=== PATIENT | male | born 1950 | race Caucasian/White ===

== ENCOUNTER 2018-07-13 11:27 | Emergency (ER) | payer OTHER ==
[~2018-07-13] VITALS: Ht 200.7 cm; Wt 106.0 kg
[~2018-07-13 11:27] MED LIST: CLB200 PO
[2018-07-13 11:31] VITALS: Ht 200.7 cm; Wt 106.0 kg
[2018-07-13] MEDS ORDERED: SODIUM CHLORIDE 0.9% 1000ML 1,000 ML IV ONE (11:44)
[2018-07-13] MEDS ORDERED: ACET-1693 PO (12:14)
[2018-07-13] MEDS ORDERED: ASPCH81X PO (12:14)
[2018-07-13] MEDS ORDERED: [UNRECOGNIZED DRUG - CODE] PO (12:14)
[2018-07-13] MEDS ORDERED: LISI-461 PO (12:14)
[2018-07-13] MEDS ORDERED: SILV1CRE99 TOP (12:14)
[2018-07-13 12:26] LABS: BASO % 0.6 %; BASO ABS # 0.02 K/uL (0-0.2); HEMATOCRIT 47.3 % (42-52); HEMOGLOBIN 15.8 g/dL (14.0-18.0); LYMPH % 13.5 %; LYMPH ABS # 0.46 K/uL (1.2-3.4); MEAN CELL VOLUME 94.4 fL (80-100); MEAN CORPUSCULAR HEMOGLOBIN 31.5 pg (25-34); MEAN CORPUSCULAR HGB CONC 33.4 g/dl (32-36); MEAN PLATELET VOLUME 10.2 fL (7.4-10.4); MONO % 6.5 %; MONO ABS # 0.22 K/uL (0.11-0.59); NEUT % 79.4 %; NEUT ABS # 2.71 K/uL (1.4-6.5); PLATELET COUNT 109 K/uL (130-400); RED CELL DISTRIBUTION WIDTH CV 13.2 % (11.5-14.5); RED CELL DISTRIBUTION WIDTH SD 45.2 fL (36.4-46.3); WHITE BLOOD COUNT 3.41 K/uL (4.8-10.8)
--- NOTE | 2018-07-13 12:29 | DIAGNOSTIC IMAGING REPORT ---
R TOE(S) MIN 2 VIEWS HISTORY: 68 years-old Male right first toe pain, fever acute pain of the right great toe COMPARISON: None available TECHNIQUE: 3 views of the right great toe FINDINGS: Mild degenerative changes of the interphalangeal joints and imaged metatarsophalangeal joints. There is mild soft tissue swelling centered about the first MTP joint and forefoot. No acute fracture, dislocation or erosive changes. Marginal spurring is seen about the midfoot as well, notably at the first tarsometatarsal joint. IMPRESSION: 1. Soft tissue swelling without acute fracture or dislocation. 2. Mild osteoarthritis. The above report was generated using voice recognition software. It may contain grammatical, syntax or spelling errors. Electronically signed by: Tyrone Arizmendi M.D. 07/13/2018 12:27 PM Dictated Date/Time: 07/13/2018 12:24 PM
--- NOTE | 2018-07-13 12:32 | DIAGNOSTIC IMAGING REPORT ---
CHEST ONE VIEW PORTABLE CLINICAL HISTORY: Sepsis. COMPARISON STUDY: Chest radiograph March 31, 2018. FINDINGS: Lung volumes are normal. There is no pneumothorax or pleural effusion. Mild cardiomegaly is noted without evidence for pulmonary edema. Apparent 2.9 cm right infrahilar opacity along the right heart border is noted. IMPRESSION: 1. Apparent 2.9 cm right infrahilar opacity along the right heart border. This may simply represent normal vasculature or atelectasis. However, a small focus of consolidation or pulmonary nodule could appear similar. Follow-up PA and lateral chest radiographs are recommended. 2. Mild cardiomegaly without evidence for pulmonary edema. Electronically signed by: Nicolas Saini M.D. 07/13/2018 12:30 PM Dictated Date/Time: 07/13/2018 12:28 PM
[2018-07-13 12:37] LABS: INR 1.1 (0.9-1.1); PTT PATIENT 27.5 SECONDS (21.0-31.0)
[2018-07-13 12:43] VITALS: O2SAT 97
[2018-07-13 12:43] LABS: ALBUMIN 3.5 gm/dl (3.4-5.0); CALCIUM 8.5 mg/dl (8.5-10.1); CREATININE 1.41 mg/dl (0.60-1.40); POTASSIUM 3.7 mmol/L (3.5-5.1); TOTAL PROTEIN 7.8 gm/dl (6.4-8.2)
[2018-07-13 13:09] VITALS: TEMP 38.4
[2018-07-13] MEDS ORDERED: ACETAMINOPHEN 500 MG TAB PO STA (13:20)
[2018-07-13] MEDS ORDERED: CEFTRIAXONE SOD INJ 1 GM ADDVIAL IV STA (13:20)
[2018-07-13] MEDS ORDERED: DOXY100C PO (14:10)
[2018-07-13 14:31] VITALS: BP 139/83; PULSE 83; O2SAT 94
--- NOTE | 2018-07-13 16:33 | EMERGENCY ROOM VISIT NOTE ---
History Report prepared by Riccardo: Romulo Agarwal Under the Supervision of: Dr. Bill Batres M.D. First contact with patient: 11:38 Chief Complaint: FEVER Stated Complaint: WEAK,TIRED,FEVER History of Present Illness The patient is a 68 year old male who presents to the Emergency Room with complaints of fevers beginning yesterday morning. The patient reports that yesterday morning, he began experiencing fatigue and chills. He states he then took 2 Tylenol. The patient's states that she measured the patient's temperature to be 103 after the Tylenol. The patient reports that he took Tylenol again at 03:00 this morning, and states that his most recent temperature was 101. He denies abdominal pain, sore throat, coughing, urinary symptoms, flank pain, diarrhea, or tick bites. He denies any sick contacts. He states that he has an upcoming surgery with Dr. Beard for gout in his right toe, noting that he had an appointment for his toe 2 weeks ago. The patient reports a history of sepsis when he had gout in his hand. He notes a history of Lyme disease. The patient's states that he was given prednisone for his gout but has not been taking it. Source of History: patient Onset: yesterday morning Position: other (global) Symptom Intensity: highest 103 Quality: other (fever) Associated Symptoms: + chills, + fatigue, No sorethroat, No cough, No abdominal pain, No diarrhea, No urinary symptoms Review of Systems See HPI for pertinent positives & negatives. A total of 10 systems reviewed and were otherwise negative. Past Medical & Surgical Medical Problems: (1) Fever (2) Hip pain (3) Lyme disease (4) Sepsis Family History Atrial fibrillation Social History Smoking Status: Never Smoker Marital Status: Housing Status: lives with significant other Occupation Status: retired Current/Historical Medications Scheduled Aspirin (Aspirin Chewable), 81 MG PO DAILY Doxycycline Hyclate (Vibramycin), 100 MG PO BID Silver Sulfadiazine (Silver Sulfadiazine), TOP DAILY Scheduled PRN Acetaminophen Tab (Tylenol), 650 MG PO Q4 PRN for Pain Sildenafil Citrate (Sildenafil Citrate), 50-100 MG PO DAILY PRN for ERECTILE DISFUNCTION Miscellaneous Medications Lisinopril (Zestril), 10 MG PO Allergies Coded Allergies: No Known Allergies (Unverified , 07/13/18) Physical Exam Vital Signs Date Time Temp Pulse Resp B/P (MAP) Pulse Ox O2 Delivery O2 Flow Rate FiO2 07/13/18 14:31 83 16 139/83 94 07/13/18 13:09 38.4 79 16 143/83 97 Room Air 07/13/18 12:43 97 Room Air 07/13/18 11:31 36.8 90 18 135/75 94 Room Air Physical Exam GENERAL: Patient is in no acute distress. HEENT: No acute trauma, normocephalic atraumatic, mucous membranes moist, no nasal congestion, no scleral icterus. NECK: No stridor, no adenopathy, no meningismus, trachea is midline. LUNGS: Clear to auscultation bilaterally, no wheeze, no rhonchi, breath sounds equal. HEART: Without murmurs gallops or rubs, regular rate and rhythm. ABDOMEN: Soft, nontender, bowel sounds positive, no hernias, no peritonitis. EXTREMITIES: No cyanosis or edema, full range of motion of all the joints without pain or difficulty, no signs for acute trauma. Right 1st toe has some mild erythema at the base of the nail . No drainage or warmth. NEUROLOGIC: Oriented x 3, no acute motor or sensory deficits, no focal weakness. SKIN: No rash, no jaundice, no diaphoresis. Medical Decision & Procedures ER Provider Diagnostic Interpretation: Radiology results as stated below per my review and radiologist interpretation: CHEST ONE VIEW PORTABLE CLINICAL HISTORY: Sepsis. COMPARISON STUDY: Chest radiograph March 31, 2018. FINDINGS: Lung volumes are normal. There is no pneumothorax or pleural effusion. Mild cardiomegaly is noted without evidence for pulmonary edema. Apparent 2.9 cm right infrahilar opacity along the right heart border is noted. IMPRESSION: 1. Apparent 2.9 cm right infrahilar opacity along the right heart border. This may simply represent normal vasculature or atelectasis. However, a small focus of consolidation or pulmonary nodule could appear similar. Follow-up PA and lateral chest radiographs are recommended. 2. Mild cardiomegaly without evidence for pulmonary edema. Electronically signed by: Nicolas Saini M.D. 07/13/2018 12:30 PM Dictated Date/Time: 07/13/2018 12:28 PM R TOE(S) MIN 2 VIEWS HISTORY: 68 years-old Male right first toe pain, fever acute pain of the right great toe COMPARISON: None available TECHNIQUE: 3 views of the right great toe FINDINGS: Mild degenerative changes of the interphalangeal joints and imaged metatarsophalangeal joints. There is mild soft tissue swelling centered about the first MTP joint and forefoot. No acute fracture, dislocation or erosive changes. Marginal spurring is seen about the midfoot as well, notably at the first tarsometatarsal joint. IMPRESSION: 1. Soft tissue swelling without acute fracture or dislocation. 2. Mild osteoarthritis. The above report was generated using voice recognition software. It may contain grammatical, syntax or spelling errors. Electronically signed by: Tyrone Arizmendi M.D. 07/13/2018 12:27 PM Dictated Date/Time: 07/13/2018 12:24 PM Laboratory Results 07/13/18 12:05 Red Blood Count 5.01, Mean Corpuscular Volume 94.4, Mean Corpuscular Hemoglobin 31.5, Mean Corpuscular Hemoglobin Concent 33.4, Mean Platelet Volume 10.2, Neutrophils (%) (Auto) 79.4, Lymphocytes (%) (Auto) 13.5, Monocytes (%) (Auto) 6.5, Eosinophils (%) (Auto) 0.0, Basophils (%) (Auto) 0.6, Neutrophils # (Auto) 2.71, Lymphocytes # (Auto) 0.46, Monocytes # (Auto) 0.22, Eosinophils # (Auto) 0.00, Basophils # (Auto) 0.02 07/13/18 12:05 Test 07/13/18 12:05 07/13/18 12:20 07/13/18 12:25 White Blood Count 3.41 K/uL (4.8-10.8) Red Blood Count 5.01 M/uL (4.7-6.1) Hemoglobin 15.8 g/dL (14.0-18.0) Hematocrit 47.3 % (42-52) Mean Corpuscular Volume 94.4 fL (80-100) Mean Corpuscular Hemoglobin 31.5 pg (25-34) Mean Corpuscular Hemoglobin Concent 33.4 g/dl (32-36) Platelet Count 109 K/uL (130-400) Mean Platelet Volume 10.2 fL (7.4-10.4) Neutrophils (%) (Auto) 79.4 % Lymphocytes (%) (Auto) 13.5 % Monocytes (%) (Auto) 6.5 % Eosinophils (%) (Auto) 0.0 % Basophils (%) (Auto) 0.6 % Neutrophils # (Auto) 2.71 K/uL (1.4-6.5) Lymphocytes # (Auto) 0.46 K/uL (1.2-3.4) Monocytes # (Auto) 0.22 K/uL (0.11-0.59) Eosinophils # (Auto) 0.00 K/uL (0-0.5) Basophils # (Auto) 0.02 K/uL (0-0.2) RDW Standard Deviation 45.2 fL (36.4-46.3) RDW Coefficient of Variation 13.2 % (11.5-14.5) Immature Granulocyte % (Auto) 0.0 % Immature Granulocyte # (Auto) 0.00 K/uL (0.00-0.02) Prothrombin Time 11.4 SECONDS (9.0-12.0) Prothromb Time International Ratio 1.1 (0.9-1.1) Activated Partial Thromboplast Time 27.5 SECONDS (21.0-31.0) Partial Thromboplastin Ratio 1.1 Anion Gap 9.0 mmol/L (3-11) Est Creatinine Clear Calc Drug Dose 67.4 ml/min Estimated GFR () 59.3 Estimated GFR (Non- 51.2 BUN/Creatinine Ratio 11.8 (10-20) Calcium Level 8.5 mg/dl (8.5-10.1) Total Bilirubin 0.6 mg/dl (0.2-1) Aspartate Amino Transf (AST/SGOT) 24 U/L (15-37) Alanine Aminotransferase (ALT/SGPT) 32 U/L (12-78) Alkaline Phosphatase 68 U/L (45-117) Total Protein 7.8 gm/dl (6.4-8.2) Albumin 3.5 gm/dl (3.4-5.0) Globulin 4.3 gm/dl (2.5-4.0) Albumin/Globulin Ratio 0.8 (0.9-2) Lyme Disease IgG Antibody NEG (NEG) Lyme Disease IgM Antibody NEG (NEG) Bedside Lactic Acid Venous 1.62 mmol/L (0.90-1.70) Urine Color YELLOW Urine Appearance CLEAR (CLEAR) Urine pH 6.0 (4.5-7.5) Urine Specific [place] 1.019 (1.000-1.030) Urine Protein NEG (NEG) Urine Glucose (UA) NEG (NEG) Urine Ketones NEG (NEG) Urine Occult Blood 1+ (NEG) Urine Nitrite NEG (NEG) Urine Bilirubin NEG (NEG) Urine Urobilinogen NEG (NEG) Urine Leukocyte Esterase NEG (NEG) Urine WBC (Auto) 0 /hpf (0-5) Urine RBC (Auto) 5-10 /hpf (0-4) Urine Hyaline Casts (Auto) 0 /lpf (0-5) Urine Epithelial Cells (Auto) 0-5 /lpf (0-5) Urine Bacteria (Auto) NEG (NEG) Laboratory results reviewed by me. Medications Administered Medications (Trade) Dose Ordered Sig/[place] Route Start Time Stop Time Status Last Admin Dose Admin Sodium Chloride 1,000 ml @ 999 mls/hr Q1H1M ONCE IV 07/13/18 11:44 07/13/18 12:44 DC 07/13/18 11:44 999 MLS/HR Ceftriaxone Sodium (Rocephin Inj) 1 gm NOW STAT IV 07/13/18 13:20 07/13/18 13:22 DC 07/13/18 13:28 1 GM Acetaminophen (Tylenol Tab) 1,000 mg NOW STAT PO 07/13/18 13:20 07/13/18 13:22 DC 07/13/18 13:27 1,000 MG ED Course 1138: The patient was evaluated in room C1B. A complete history and physical exam was performed. 1144: Ordered Sodium Chloride 1000 ml @ 999 mls/hr IV 1320: Ordered Tylenol 1000 mg PO, Rocephin 1 gm IV 1353: Reevaluated the patient. Discussed results and discharge instructions: He verbalized understanding and agreement. The patient is ready for discharge. Medical Decision Differential diagnosis: UTI, bacteriemia, electrolyte imbalance, sepsis, osteomyelitis, endocarditis, lyme disease, pneumonia, viral illness There is no white count elevation, in fact, the white count is slightly low. Platelet count slightly low. No anemia. No significant electrolyte abnormality , kidney failure or hepatitis. Urinalysis does not show infection. Chest film shows an area along the right heart border which could be possible infection versus tissue overlap versus a nodule, follow-up was suggested. Right first toe film showed osteoarthritis, no evidence for osteomyelitis. Blood cultures are pending. Lactic acid level was not elevated making sepsis less likely. Lyme disease testing was negative. Anaplasmosis testing is pending. On exam, the right toe did not show evidence for cellulitis. The patient did develop a fever during his stay in the ER, he was given IV saline, oral Tylenol. He received IV ceftriaxone. I am concerned about a tickborne illness as a possible cause for his fever. Anaplasmosis is possible. Certainly, early pneumonia is also possible. The patient is being discharged on doxycycline which should be good coverage for all possibilities. He was encouraged to return if worsening and to follow with his doctors office for follow-up testing. I did mention that this all could be viral, the patient and his significant other understand. Medication Reconcilliation Current Medication List: was personally reviewed by me Blood Pressure Screening Patient's blood pressure: Elevated blood pressure Blood pressure disposition: Elevated BP felt to be situational Impression Primary Impression: Fever Additional Impression: Abnormal chest x-ray Scribe Attestation The scribe's documentation has been prepared under my direction and personally reviewed by me in its entirety. I confirm that the note above accurately reflects all work, treatment, procedures, and medical decision making performed by me. Departure Information Dispostion Home / Self-Care Prescriptions Doxycycline Hyclate (VIBRAMYCIN) 100 Mg Cap 100 MG PO BID for 14 Days, #28 CAP Prov: Bill Batres M.D. 07/13/18 Referrals Jose Jimenez M.D. (PCP) Forms HOME CARE DOCUMENTATION FORM, IMPORTANT VISIT INFORMATION Patient Instructions My [facility] [employer] Additional Instructions doxycycline 2x per day for 2 weeks tylenol for fever fluids rest see je paige wednesday for a recheck return for worsening symptoms your je paige can follow up on the tick borne disease testing you will also need a repeat chest film as we discussed Problem Qualifiers
== END 2018-07-13 14:30 | disposition home or self-care (01) ==
LOC: C.EDB 11:30 → C.EDC 14:30
DX: R50.9 Fever, unspecified (principal); R91.8 Other nonspecific abnormal finding of lung field; M10.9 Gout, unspecified; Z79.82 Long term (current) use of aspirin

== ENCOUNTER 2019-05-04 11:39 | Inpatient (IN) ==
[2019-05-04] MEDS ORDERED: SODIUM CHLORIDE 0.9% 1000ML 2,000 ML IV ONE (12:42)
--- NOTE | 2019-05-04 13:05 | XRay Report ---
SINGLE VIEW CHEST CLINICAL HISTORY: Sepsis. FINDINGS: An AP, portable, upright chest radiograph is compared to study dated 07/13/2018. The examina tion is degraded by portable technique and patient rotation. The heart is enlarged and there is mild atherosclerotic calcification of the thoracic aorta. The pulmonary vasculature is noncongested. Ther e is mild chronic elevation of the left hemidiaphragm with associated atelectasis. The lungs and pleu ral spaces are otherwise clear. No pneumothorax is seen. The bony thorax is grossly intact. Degenerat claudette change is seen in the thoracic spine. IMPRESSION: Cardiac enlargement with no active disease in the chest. Electronically signed by: Bill Lisa M.D. 05/04/2019 1:03 PM
[2019-05-04 13:35] LABS: Hematocrit (blood only) 45.2 % (42-52); Hemoglobin 16.1 g/dL (14.0-18.0); Mean Corpuscular Hgb Conc 35.6 g/dL (32-36); Mean Corpuscular Volume 89.7 fL (80-100); RDW Coefficient of Variation 13.4 % (11.5-14.5); RDW Standard Deviation 44.6 fL (36.4-46.3); Red Blood Count 5.04 M/uL (4.7-6.1); White Blood Count 2.84 K/uL (4.8-10.8)
[2019-05-04 13:43] LABS: Albumin Level 3.1 gm/dl (3.4-5.0); BUN Creatinine Ratio 19.9 (10-20); Calcium 8.3 mg/dl (8.5-10.1); Creatinine Clr Calc Pharmacy 69.3 ml/min; Est GFR (African American) 61.4; Potassium 3.7 mmol/L (3.5-5.1)
[2019-05-04 13:45] LABS: INR 1.1 (0.9-1.1); Partial Thromboplastin Ratio 1.1; Partial Thromboplastin Time 29.9 Seconds (21.0-31.0); Prothrombin Time 11.5 Seconds (9.0-12.0)
[2019-05-04] MEDS ORDERED: DOXYCYCLINE HYCLATE 100 MG CAP PO STA (13:45)
[2019-05-04] MEDS ORDERED: SODIUM CHLORIDE 0.9% 1000ML 1,000 ML IV SCH (13:45)
[2019-05-04] MEDS ORDERED: cefTRIAXone SODIUM 2,000 MG in DEXTROSE 5% 50 ML IV STA (13:45)
[2019-05-04] MEDS ORDERED: ONDANSETRON INJ 2 MG/ML 2 ML VIAL IV STA (13:45)
[2019-05-04 13:48] LABS: Albumin Globulin Ratio 0.8 (0.9-2); Creatine Kinase MB 2.7 ng/ml (0.5-3.6); Globulin 4.1 gm/dl (2.5-4.0); Total Protein 7.2 gm/dl (6.4-8.2); Troponin I 0.028 ng/ml (0-0.045)
[2019-05-04 13:49] LABS: Mean Platelet Volume 11.6 fL (7.4-10.4); Platelet Count 47 K/uL (130-400)
[2019-05-04 13:50] LABS: Basophils # (auto) 0.01 K/uL (0-0.2); Basophils % (auto) 0.4 %; Lymphocytes # (auto) 0.34 K/uL (1.2-3.4); Monocytes # (auto) 0.16 K/uL (0.11-0.59); Monocytes % (auto) 5.6 %; Neutrophils # (auto) 2.33 K/uL (1.4-6.5); Platelet Estimate Decreased (Normal)
[2019-05-04 14:14] LABS: Lyme Ab IgG w/WB Rflx Negative (Negative); Lyme Ab IgM w/WB Rflx Negative (Negative)
--- NOTE | 2019-05-04 16:35 | Cardiology Consultation ---
Date of Consultation May 04, 2019 Assessment & Plan (1) New onset a-fib: The patient's blood pressure at 2 PM had been 134/90, most recent repeat reading included a systolic blood pressure in the 80s. We are in the process of repeating another blood pressure. His heart rate is reasonably well controlled in the 80 to 95 bpm range after receiving 3 L of IV fluids. The patient is ill-appearing. He denies personal history of arrhythmia. He does note that his father had a history of atrial fibrillation. Recommend supportive care for suspected underlying infection as noted below, IV fluids, I do not think there is enough room for rate control medications at this point. And I recommend avoiding anticoagulation givin platelet count of 47 at present. (2) Sepsis: (3) Leukopenia: (4) Thrombocytopenia: The patient is retired from the [employer]. He had past Lyme disease release 10 years ago. He notes no recent definite tick bites. As noted by the admitting team in the emergency department physician, patient has leukopenia, thrombus cytopenia, and mildly elevated AST. Anaplasmosis studies have been sent. And he has received Rocephin and doxycycline and these are to be continued. He does have an erythematous rash over his body at present. I spoke to Dr. Dupont, he believes this was present before the antibiotics were administered. As noted if repeated temperature was taken when I was examining the patient and he was afebrile. A bedside echocardiogram was ordered by the undersigned. I reviewed the first few images. There is no pericardial effusion. We will await completion of the entire study prior to commenting on the ejection fraction and other findings. History of Present Illness History of Present Illness Tolu Soto is a 68 year old male seen in cardiology consultation per the request of Dr Alston for the evaluation of atrial fibrillation. The patient denies any past cardiac history. He had an outpatient EKG within the [facility] system in December 2017 that revealed sinus bradycardia with frequent premature atrial complexes. He presented to the emergency department today with with the patient describes as approximately 1 week of progressive symptoms of feeling chills at home, and progressive weakness. His initial blood pressure was 110/79, his initial heart rate was 103. 2 temperature readings were taken thus far in the emergency room with most recent having been 98.4 F, and he was without objective elevated temperature on the first reading as well. Have revealed atrial fibrillation in the range of 85 to 100 bpm without any significant repolarization changes. Prior to my arrival, the patient had received 3 L of normal saline and a dose of IV ceftriaxone. The patient denies any subjective sensation that his heart rate is elevated or irregular. He does note recent dizziness and near syncope. Allergies Allergy/AdvReac Type Severity Reaction Status Date / Time No Known Allergies Allergy Unverified 05/04/19 13:53 Home Medications Home Medications Medication Instructions Recorded Confirmed Type acetaminophen 650 mg PO Q4H PRN 05/04/19 05/04/19 History allopurinol 100 mg PO QAM 05/04/19 05/04/19 History aspirin [Aspirin Childrens] 81 mg PO QAM 05/04/19 05/04/19 History lisinopril 10 mg PO DAILY 05/04/19 05/04/19 History metformin 500 mg PO BID 05/04/19 05/04/19 History Patient History Medical History Lyme disease (Resolved) Hip pain (Resolved) Fever (Resolved) Confusion (Acute) Septic arthritis of IP joint of finger (Acute) Sepsis Abnormal chest x-ray (Acute) Family History Other Family history non-contributory Social History marital status: Current Living Situation: Spouse Feels Safe at Home: Yes Smoking Status: Former smoker Review of Systems Review of Systems: All systems reviewed & are unremarkable except as noted in HPI & below Physical Exam Constitutional: + ill appearing and average body habitus Respiratory: normal respiratory effort, lungs clear to auscultation Cardiovascular: Rate/Rhythm: + tachycardic and + irregularly irregular Heart Sounds: no murmur Vessels: no JVD Extremities: no edema Gastrointestinal (Abdomen): normal bowel sounds, soft, nontender, no hepatosplenomegaly Skin: Erythematous, nonraised rash over the patient's trunk Neurologic: PERRL, EOMI, accommodation nl, no face palsy, no dysarthria moves all extremities; no focal motor deficits Results & Data Vital Signs (Past 12 Hours) Vital Signs Temp Pulse Resp BP Pulse Ox 05/04/19 14:00 95 H 22 134/90 100 05/04/19 13:40 99 H 21 137/73 100 05/04/19 13:36 97 H 20 100 05/04/19 13:30 103 H 19 119/80 100 05/04/19 13:10 98 H 15 104/74 100 05/04/19 13:01 110 H 20 96/71 L 100 05/04/19 13:00 106 H 18 100 05/04/19 12:50 100 H 4 L 93/71 L 100 05/04/19 12:40 107 H 17 107/67 100 05/04/19 12:31 106 H 29 H 98 05/04/19 12:30 103 H 19 106/69 100 05/04/19 12:20 98 H 19 100 05/04/19 12:16 87 13 97/70 L 100 05/04/19 12:10 100 H 24 89 L 05/04/19 12:04 37.0 C 93 H 20 100/71 96 05/04/19 12:02 111 H 18 87 L 05/04/19 12:00 90 24 97/68 L 86 L 05/04/19 11:57 103 H 26 H 110/79 92 Laboratory Results Cardiac Enzymes 05/04/19 Range/Units 13:10 AST 90 H (15-37) U/L CK-MB (CK-2) 2.7 (0.5-3.6) ng/ml Troponin I 0.028 (0-0.045) ng/ml Coagulation 05/04/19 Range/Units 13:23 PT 11.5 (9.0-12.0) Seconds APTT 29.9 (21.0-31.0) Seconds CBC 05/04/19 Range/Units 13:10 WBC 2.84 L (4.8-10.8) K/uL RBC 5.04 (4.7-6.1) M/uL Hgb 16.1 (14.0-18.0) g/dL Hct 45.2 (42-52) % Plt Count 47 L (130-400) K/uL Neut # (Auto) 2.33 (1.4-6.5) K/uL Lymph # (Auto) 0.34 L (1.2-3.4) K/uL [place] # (Auto) 0.16 (0.11-0.59) K/uL Eos # (Auto) 0.00 (0-0.5) K/uL Baso # (Auto) 0.01 (0-0.2) K/uL Comprehensive Metabolic Panel 05/04/19 Range/Units 13:10 Sodium 135 L (136-145) mmol/L Potassium 3.7 (3.5-5.1) mmol/L Chloride 104 (98-107) mmol/L Carbon Dioxide 25 (21-32) mmol/L BUN 27 H (7-18) mg/dl Creatinine 1.37 (0.6-1.4) mg/dl Glucose 149 H (70-99) mg/dl Calcium 8.3 L (8.5-10.1) mg/dl AST 90 H (15-37) U/L ALT 78 (12-78) U/L Alkaline Phosphatase 65 (45-117) U/L Total Protein 7.2 (6.4-8.2) gm/dl Albumin 3.1 L (3.4-5.0) gm/dl Intake and Output 05/04/19 05/04/19 05/04/19 06:59 14:59 22:59 Intake Total 100 / 3170 3070 / 3170 Balance 100 / 3170 3070 / 3170 Intake: IV 100 / 3170 3070 / 3170 Nss 1000ML 2,000 ml @ 999 mls/ 3000 / 3000 hr IV .Q2H1M ONE Rx#:[id number] Rocephin 2,000 mg In D5w 50 ml 70 / 70 @ 100 mls/hr IV NOW STA Rx#: [id number] Right Antecubital 100 / 100 Other: Weight 111 kg Patient Weight 05/05/19 06:59 Weight 111 kg Diagnostic Findings EKG as noted above
--- NOTE | 2019-05-04 16:35 | History & Physical Report ---
Date of Service May 04, 2019 History of Present Illness Chief Complaint: Fever, chills, Generalized weakness Primary Care Provider: Manoj Matson MD Patient is a 68-year-old male with history of diabetes, CKD III, gout, hypertension, dyslipidemia, smokeless tobacco use presents with history of fever, chills since 4 days duration. Patient reports having very poor appetite since Wednesday. He had 2 episodes of vomiting on Wednesday and Wednesday. He was evaluated at his PCPs office today and he complained of lightheadedness. He states having significant generalized weakness and has been lying in bed most of the day since Wednesday. Also reports dry cough since Wednesday. Patient was noted to be in A. fib RVR while in ED which improved with IV fluids. He was also noted to have low platelets, but denies any history of bleeding. He was also found to be hypotensive while in ED. Patient denies any recent travel, has not noticed any rash, tick bite history. States having history of Lyme's disease i n the past 10 years ago. Denies any history of chest pain, SOB, palpitations, pedal edema, hemoptysis, fall, headache, abdominal pain, blood in stools, diarrhea, dysuria, hematuria. Allergies Allergy/AdvReac Type Severity Reaction Status Date / Time No Known Allergies Allergy Unverified 05/04/19 13:53 Home Medications Home Medications Medication Instructions Recorded Confirmed Type acetaminophen 650 mg PO Q4H PRN 05/04/19 05/04/19 History allopurinol 100 mg PO QAM 05/04/19 05/04/19 History aspirin [Aspirin Childrens] 81 mg PO QAM 05/04/19 05/04/19 History atorvastatin 20 mg PO DAILY 05/04/19 05/04/19 History lisinopril 10 mg PO DAILY 05/04/19 05/04/19 History metformin 500 mg PO BID 05/04/19 05/04/19 History Past Med/Surg History Medical History Lyme disease (Resolved) Hip pain (Resolved) Fever (Resolved) Confusion (Acute) Septic arthritis of IP joint of finger (Acute) Sepsis Abnormal chest x-ray (Acute) CKD (chronic kidney disease), stage III Diabetes Dyslipidemia Gout HTN (hypertension), benign Intention tremor Surgical History No history of previous surgery Family History Other Family history non-contributory Social History Preferred Language: Arabic Communication Ability: Effective Family Services Coordinator Required: No Beliefs That Will Affect Care: None marital status: Current Living Situation: Spouse Other Information That Helps Us Care for You: No Feels Safe at Home: Yes Safety Concerns: Feels Safe At This Time Smoking Status: Former smoker Tobacco Type: smokeless tobacco Do You Dip or Chew Tobacco: Yes (1 can a day) Second Hand Exposure: No Tobacco Cessation Education Requested by Patient: No Hx Alcohol Use: Yes Hx Substance Use: No Review of Systems Review of Systems: All systems reviewed & are unremarkable except as noted in HPI & below Physical Exam Physical Exam: Physical Exam: Vitals signs as noted above General Appearance:Moderately built and nourished, no apparent distress Head: normocephalic, Atraumatic Eyes: normal inspection, EOMI Neck: supple, Trachea midline Respiratory/Chest: Decreased breath sounds, CTA Cardiovascular: Irregulary Irregular, No murmur Abdomen/GI:Soft, Non tender, Bowel sounds present Extremities/Musculoskelatal:normal inspection, no edema Neurologic/Psych:AAOX3, grossly no focal neurological deficits Skin: normal color, warm Results & Data Vital Signs (Past 12 Hours) Vital Signs Temp Pulse Resp BP Pulse Ox 05/04/19 14:00 95 H 22 134/90 100 05/04/19 13:40 99 H 21 137/73 100 05/04/19 13:36 97 H 20 100 05/04/19 13:30 103 H 19 119/80 100 05/04/19 13:10 98 H 15 104/74 100 05/04/19 13:01 110 H 20 96/71 L 100 05/04/19 13:00 106 H 18 100 05/04/19 12:50 100 H 4 L 93/71 L 100 05/04/19 12:40 107 H 17 107/67 100 05/04/19 12:31 106 H 29 H 98 05/04/19 12:30 103 H 19 106/69 100 05/04/19 12:20 98 H 19 100 05/04/19 12:16 87 13 97/70 L 100 05/04/19 12:10 100 H 24 89 L 05/04/19 12:04 37.0 C 93 H 20 100/71 96 05/04/19 12:02 111 H 18 87 L 05/04/19 12:00 90 24 97/68 L 86 L 05/04/19 11:57 103 H 26 H 110/79 92 Laboratory Results Short CBC 05/04/19 Range/Units 13:10 WBC 2.84 L (4.8-10.8) K/uL Hgb 16.1 (14.0-18.0) g/dL Hct 45.2 (42-52) % Plt Count 47 L (130-400) K/uL BMP 05/04/19 13:10 Sodium 135 L Potassium 3.7 Chloride 104 Carbon Dioxide 25 BUN 27 H Creatinine 1.37 Glucose 149 H Calcium 8.3 L Cardiac Enzymes 05/04/19 Range/Units 13:10 Total Creatine Kinase 377 H (39-308) U/L CK-MB (CK-2) 2.7 (0.5-3.6) ng/ml Troponin I 0.028 (0-0.045) ng/ml Liver Function 05/04/19 Range/Units 13:10 Total Bilirubin 1.0 (0.2-1) mg/dl AST 90 H (15-37) U/L ALT 78 (12-78) U/L Alkaline Phosphatase 65 (45-117) U/L Albumin 3.1 L (3.4-5.0) gm/dl Diagnostic Findings CXR: Cardiac enlargement with no active disease in the chest. Medications Administered Home Medications Medication Instructions Recorded Confirmed acetaminophen 650 mg PO Q4H PRN 05/04/19 05/04/19 allopurinol 100 mg PO QAM 05/04/19 05/04/19 aspirin [Aspirin Childrens] 81 mg PO QAM 05/04/19 05/04/19 lisinopril 10 mg PO DAILY 05/04/19 05/04/19 metformin 500 mg PO BID 05/04/19 05/04/19 ECG Additional Comments: EKG: Afib RVR, QTC: 422 Supervising Physician Co-Signing Physician Notes Possible Sepsis Lukopenia, Thrombocytopenia To R/O Anaplasmosis CXR:Cardiac enlargement with no active disease in the chest. UA: pending Peripheral Smear: No myelodysplasia, no neutrophilic inclusions Serological Work up for Anaplasmosis/Lyme ordered Blood Cx Empirically Start on Ceftriaxone, Doxycycline Hold lisinopril for now New Onset Atrial Fibrillation Currently has Hypotension Bedside echo--no pericardial effusion, No signs of reduced EF Appreciate cardiology input No anticoagulation for now due to thrombocytopenia Heart rate is relatively controlled after IV fluids AV blocking meds once BP is more stable DM II: Last A1C: 6.7 on 01/11/19 Update A1C Hold Metformin Utilize ISS while hospitalized CKD III Cr at baseline Monitor renal function Gout On Allopurinol Dyslipidemia Hold statin for now due to mild CK elevation smokeless tobacco use Counseled to quit DVT Px: SCDs Re; thrombocytopenia Disposition: Monitor in Tele
[2019-05-04 17:13] LABS: Appearance Urine Cloudy (Clear); Bacteria Urine Automated Negative (Negative); Bilirubin Urine Negative (Negative); Blood Urine 1+ (Negative); Color Urine Dark Yellow; Epithelial Cell Urine Auto >30 /lpf (0-5); Glucose Urine UA Negative (Negative); Ketones Urine Negative (Negative); Leukocyte Esterase Urine Negative (Negative); Nitrite Urine Negative (Negative); Protein Urine 2+ (Negative); RBC Urine Automated 0-4 /hpf (0-4); Specific Gravity Urine 1.027 (1.000-1.030); Urobilinogen Urine Negative (Negative); pH Urine 5.5 (4.5-7.5)
[2019-05-04] MEDS ORDERED: ACETAMINOPHEN 325 MG TAB PO PRN (17:39)
[2019-05-04] MEDS ORDERED: ONDANSETRON INJ 2 MG/ML 2 ML VIAL IV PRN (17:39)
[2019-05-04] MEDS ORDERED: GLUCOSE 40% GEL 15 GM TUBE PO PRN (17:39)
[2019-05-04] MEDS ORDERED: DEXTROSE 50% 50 ML SYRINGE IV PRN (17:39)
[2019-05-04] MEDS ORDERED: POLYETHYLENE (MIRALAX) 17 GM PACK PO PRN (17:39)
[2019-05-04] MEDS ORDERED: CARBOHYDRATES FOR HYPOGLYCEMIA PO PRN (17:39)
[2019-05-04] MEDS ORDERED: GLUCOSE 10 TABS/TUBE PO PRN (17:39)
[2019-05-04] MEDS ORDERED: GLUCAGON FOR INJ 1 MG VIAL SQ PRN (17:39)
[2019-05-04] MEDS: NSS + 20MEQ KCL 20 MEQ/1,000 ML BAG IV SCH (18:14)
[2019-05-04] MEDS ORDERED: CONSULT PHARMACY STA (18:56)
--- NOTE | 2019-05-04 19:00 | Communication Note ---
Date of Service: May 04, 2019 Summary of transthoracic echocardiogram report: Atrial fibrillation with mildly elevated ventricular rate in the range of 90 to 100 bpm was present during the echocardiogram study. LV Ejection Fraction = 60-65%. The right ventricle is normal in size and function. There is no pericardial effusion. There is a linear mobile echodensity noted in the midportion of the right atrium that appears to perhaps be adherent to the interatrial septum. The differential diagnosis includes a prominent Chiari network (normal anatomical variant) or thrombus. However given the patient's presentation with a sepsis-like syndrome and fever, vegetation is a likely consideration. -I called and discussed the echocardiogram findings with Dr. Alston. He is going to expand the antibiotic coverage to include staph aureus. I am going to make the patient n.p.o. after midnight for consideration of transesophageal echocardiogram tomorrow.
--- NOTE | 2019-05-04 19:01 | Emergency Department Note ---
Entered by Karoline Rodriguez acting as a scribe for History of Present Illness General Chief complaint: Illness Stated complaint: dizzy/vomit Time Seen by Provider: 05/04/19 12:16 Source: patient History of Present Illness Onset (ago): day(s) 3 Location: head, abdomen, upper extremity and lower extremity Pain Consistency: + other (episode) Quality: + other (illness) Associated symptoms: + fever/chills, + nausea/vomiting (vomiting), + syncope (ne ar) and + weakness The patient is a 68 year old male who presents to the ED with complaints of an episode of an illness starting 3 days ago. The patient states that he has been having fever, chills, vomiting, and weakness. He states that he went to his PCP today and while there had one of his episodes where he shakes from his chills so much. He states that he almost passed out so they called an ambulance to bring him here. Home Medications Home Medications Medication Instructions Recorded Confirmed Type acetaminophen 650 mg PO Q4H PRN 05/04/19 05/04/19 History allopurinol 100 mg PO QAM 05/04/19 05/04/19 History aspirin [Aspirin Childrens] 81 mg PO QAM 05/04/19 05/04/19 History atorvastatin 20 mg PO DAILY 05/04/19 05/04/19 History lisinopril 10 mg PO DAILY 05/04/19 05/04/19 History metformin 500 mg PO BID 05/04/19 05/04/19 History Allergies Allergy/AdvReac Type Severity Reaction Status Date / Time No Known Allergies Allergy Unverified 05/04/19 13:53 Past Med/Surg History Medical History Lyme disease (Resolved) Hip pain (Resolved) Fever (Resolved) Confusion (Acute) Septic arthritis of IP joint of finger (Acute) Sepsis Abnormal chest x-ray (Acute) CKD (chronic kidney disease), stage III Diabetes Dyslipidemia Gout HTN (hypertension), benign Intention tremor Surgical History No history of previous surgery Family History Other Family history non-contributory Social History Preferred Language: Azeri Communication Ability: Effective 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 and A total of 10 systems reviewed and were otherwise negative Physical Exam Vital Signs Vital Signs - 24 hr 05/04/19 11:57 05/04/19 12:00 05/04/19 12:02 Temperature Temperature Source Sepsis Recent Fever Within 48 Hours Sepsis New/Unexplained Change in Mental Status Sepsis Action Taken by Nursing Pulse Rate 103 H 90 111 H Pulse Rate from SpO2 Sensor 100 H 87 98 H Respiratory Rate 26 H 24 18 Respiratory Effort / Characteristics Respiratory Depth Respiratory Pattern Blood Pressure 110/79 97/68 L Blood Pressure Mean 89 77 Pulse Oximetry 92 86 L 87 L Oxygen Delivery Method Oxygen Flow Rate 05/04/19 12:04 05/04/19 12:10 05/04/19 12:16 Temperature 37.0 C Temperature Source Oral Sepsis Recent Fever Within 48 Hours Yes Sepsis New/Unexplained Change in Mental Status No Sepsis Action Taken by Nursing No Action Required Pulse Rate 93 H 100 H 87 Pulse Rate from SpO2 Sensor 96 H 85 Respiratory Rate 20 24 13 Respiratory Effort / Characteristics Non-Labored Spontaneous Respiratory Depth Normal Respiratory Pattern Regular Blood Pressure 100/71 97/70 L Blood Pressure Mean 80 79 Pulse Oximetry 96 89 L 100 Oxygen Delivery Method Room Air Oxygen Flow Rate 05/04/19 12:20 05/04/19 12:30 05/04/19 12:31 Temperature Temperature Source Sepsis Recent Fever Within 48 Hours Sepsis New/Unexplained Change in Mental Status Sepsis Action Taken by Nursing Pulse Rate 98 H 103 H 106 H Pulse Rate from SpO2 Sensor 98 H 91 H 86 Respiratory Rate 19 19 29 H Respiratory Effort / Characteristics Respiratory Depth Respiratory Pattern Blood Pressure 106/69 Blood Pressure Mean 81 Pulse Oximetry 100 100 98 Oxygen Delivery Method Oxygen Flow Rate 05/04/19 12:40 05/04/19 12:50 05/04/19 13:00 Temperature Temperature Source Sepsis Recent Fever Within 48 Hours Sepsis New/Unexplained Change in Mental Status Sepsis Action Taken by Nursing Pulse Rate 107 H 100 H 106 H Pulse Rate from SpO2 Sensor 88 85 88 Respiratory Rate 17 4 L 18 Respiratory Effort / Characteristics Respiratory Depth Respiratory Pattern Blood Pressure 107/67 93/71 L Blood Pressure Mean 80 78 Pulse Oximetry 100 100 100 Oxygen Delivery Method Oxygen Flow Rate 05/04/19 13:01 05/04/19 13:10 05/04/19 13:30 Temperature Temperature Source Sepsis Recent Fever Within 48 Hours Sepsis New/Unexplained Change in Mental Status Sepsis Action Taken by Nursing Pulse Rate 110 H 98 H 103 H Pulse Rate from SpO2 Sensor 83 94 H 98 H Respiratory Rate 20 15 19 Respiratory Effort / Characteristics Respiratory Depth Respiratory Pattern Blood Pressure 96/71 L 104/74 119/80 Blood Pressure Mean 79 84 93 Pulse Oximetry 100 100 100 Oxygen Delivery Method Oxygen Flow Rate 05/04/19 13:36 05/04/19 13:40 05/04/19 14:00 Temperature Temperature Source Sepsis Recent Fever Within 48 Hours Sepsis New/Unexplained Change in Mental Status Sepsis Action Taken by Nursing Pulse Rate 97 H 99 H 95 H Pulse Rate from SpO2 Sensor 86 82 Respiratory Rate 20 21 22 Respiratory Effort / Characteristics Respiratory Depth Respiratory Pattern Blood Pressure 137/73 134/90 Blood Pressure Mean 94 104 Pulse Oximetry 100 100 100 Oxygen Delivery Method Nasal Cannula Oxygen Flow Rate 2 05/04/19 14:10 05/04/19 14:20 05/04/19 14:30 Temperature Temperature Source Sepsis Recent Fever Within 48 Hours Sepsis New/Unexplained Change in Mental Status Sepsis Action Taken by Nursing Pulse Rate 99 H 97 H 92 H Pulse Rate from SpO2 Sensor 86 92 H 89 Respiratory Rate 24 26 H 20 Respiratory Effort / Characteristics Respiratory Depth Respiratory Pattern Blood Pressure 118/86 Blood Pressure Mean 96 Pulse Oximetry 100 100 100 Oxygen Delivery Method Oxygen Flow Rate 05/04/19 14:40 05/04/19 14:50 05/04/19 15:00 Temperature Temperature Source Sepsis Recent Fever Within 48 Hours Sepsis New/Unexplained Change in Mental Status Sepsis Action Taken by Nursing Pulse Rate 94 H 93 H 97 H Pulse Rate from SpO2 Sensor 90 92 H 91 H Respiratory Rate 27 H 28 H 29 H Respiratory Effort / Characteristics Respiratory Depth Respiratory Pattern Blood Pressure 125/77 Blood Pressure Mean 93 Pulse Oximetry 100 100 100 Oxygen Delivery Method Oxygen Flow Rate 05/04/19 15:10 05/04/19 15:20 05/04/19 15:30 Temperature Temperature Source Sepsis Recent Fever Within 48 Hours Sepsis New/Unexplained Change in Mental Status Sepsis Action Taken by Nursing Pulse Rate 88 94 H 88 Pulse Rate from SpO2 Sensor 87 92 H 92 H Respiratory Rate 33 H 19 11 L Respiratory Effort / Characteristics Respiratory Depth Respiratory Pattern Blood Pressure 119/69 Blood Pressure Mean 85 Pulse Oximetry 100 99 100 Oxygen Delivery Method Oxygen Flow Rate 05/04/19 15:40 05/04/19 15:50 05/04/19 16:00 Temperature Temperature Source Sepsis Recent Fever Within 48 Hours Sepsis New/Unexplained Change in Mental Status Sepsis Action Taken by Nursing Pulse Rate 92 H 116 H 99 H Pulse Rate from SpO2 Sensor 86 83 83 Respiratory Rate 18 16 15 Respiratory Effort / Characteristics Respiratory Depth Respiratory Pattern Blood Pressure Blood Pressure Mean Pulse Oximetry 100 98 99 Oxygen Delivery Method Oxygen Flow Rate 05/04/19 16:01 05/04/19 16:10 05/04/19 16:20 Temperature Temperature Source Sepsis Recent Fever Within 48 Hours Sepsis New/Unexplained Change in Mental Status Sepsis Action Taken by Nursing Pulse Rate 94 H 86 80 Pulse Rate from SpO2 Sensor 87 84 77 Respiratory Rate 9 L 16 23 Respiratory Effort / Characteristics Respiratory Depth Respiratory Pattern Blood Pressure 84/63 L Blood Pressure Mean 70 Pulse Oximetry 100 94 97 Oxygen Delivery Method Oxygen Flow Rate GENERAL: Awake, alert, well-appearing, in no acute distress HENT: Normocephalic, atraumatic. Oropharynx unremarkable. EYES: Normal conjunctiva. Sclera non-icteric. NECK: Supple. No nuchal rigidity. FROM. No JVD. RESPIRATORY: Clear to auscultation. CARDIAC: Regular rate, normal rhythm. Extremities warm and well perfused. Pulses equal. ABDOMEN: Soft, non-distended. No tenderness to palpation. No rebound or guarding. No masses. RECTAL: Deferred. MUSCULOSKELETAL: Chest examination reveals no tenderness. The back is symmetrical on inspection without obvious abnormality. There is no CVA tenderness to palpation. No joint edema. LOWER EXTREMITIES: Calves are equal size bilaterally and non-tender. No edema. No discoloration. NEURO: Normal sensorium. No sensory or motor deficits noted. SKIN: Fine rash to his chest. No jaundice noted. Course 1230: Past medical records reviewed. The patient was evaluated in room B4B. A complete history and physical exam was performed. 1402: I reevaluated the patient and updated him on his results thus far. I informed him that I believed he may have anaplasmosis. He notes a history of Lyme Disease. 1510: I reevaluated the patient and updated him on his test results. I discussed the treatment plan with him. He verbally agrees and understands. 1515: I discussed the patient's case with Dr. Alberto Hines. He will evaluate the patient for further management. Consultations Consultation #1: I discussed the patient's case with Dr. Alberto Hines. He will evaluate the patient for further management. Time: 15:15 Administered Medications Potassium Chloride/Sodium Chloride (Normal Saline W/20 Meq Kcl) 20 meq in 1,000 mls @ 150 mls/hr IV .Q6H40M RENA Stop: 06/03/19 17:59 Last Admin: 05/04/19 18:14 Dose: 150 mls/hr Documented by: [id number] Discontinued Medications Doxycycline Hyclate (Vibramycin) 100 mg PO NOW STA Stop: 05/04/19 13:46 Last Admin: 05/04/19 13:56 Dose: 100 mg Documented by: [id number] Sodium Chloride (Nss 1000ml) 2,000 mls @ 999 mls/hr IV .Q2H1M ONE Stop: 05/04/19 14:42 Last Infusion: 05/04/19 15:37 Dose: 0 mls/hr Documented by: [id number] Admin: 05/04/19 13:36 Dose: 999 mls/hr Documented by: [id number] Ceftriaxone Sodium 2,000 mg/ (Dextrose) 70 mls @ 100 mls/hr IV NOW STA Stop: 05/04/19 14:26 Last Infusion: 05/04/19 15:09 Dose: 0 mls/hr Documented by: [id number] Admin: 05/04/19 14:19 Dose: 100 mls/hr Documented by: [id number] Sodium Chloride (Nss 1000ml) 1,000 mls @ 999 mls/hr IV .Q1H1M RENA Stop: 05/04/19 14:45 Last Infusion: 05/04/19 15:09 Dose: 0 mls/hr Documented by: [id number] Admin: 05/04/19 14:22 Dose: 999 mls/hr Documented by: [id number] Ondansetron HCl (Zofran) 4 mg IV NOW STA Stop: 05/04/19 13:46 Last Admin: 05/04/19 13:58 Dose: 4 mg Documented by: [id number] Medical Decision Making Differential Diagnosis Differential diagnosis: Etiologies such as viral syndrome, otitis, pharyngitis, pneumonia, influenza, meningitis, urinary tract infection, septic arthritis, soft tissue infectious process, intra-abdominal process, sepsis, bacteremia, as well as others were entertained. Medical Records Attestation: I reviewed the patient's medical records. Home Medications Current Medication List: was personally reviewed by me Laboratory Data Attestation: I reviewed the patient's lab results. Result diagrams: 05/04/19 13:10 05/04/19 13:10 Lab Results 05/04/19 05/04/19 05/04/19 Range/Units 13:10 13:10 13:10 WBC 2.84 L (4.8-10.8) K/uL RBC 5.04 (4.7-6.1) M/uL Hgb 16.1 (14.0-18.0) g/dL Hct 45.2 (42-52) % MCV 89.7 (80-100) fL MCH 31.9 (25-34) pg MCHC 35.6 (32-36) g/dL RDW Std Deviation 44.6 (36.4-46.3) fL RDW Coeff of Jorge L 13.4 (11.5-14.5) % Plt Count 47 L (130-400) K/uL MPV 11.6 H (7.4-10.4) fL Immature Gran % (Auto) 0.0 % Neut % (Auto) 82.0 % Lymph % (Auto) 12.0 % Wheeler % (Auto) 5.6 % Eos % (Auto) 0.0 % Baso % (Auto) 0.4 % Immature Gran # (Auto) 0.00 (0.00-0.02) K/uL Neut # (Auto) 2.33 (1.4-6.5) K/uL Lymph # (Auto) 0.34 L (1.2-3.4) K/uL Wheeler # (Auto) 0.16 (0.11-0.59) K/uL Eos # (Auto) 0.00 (0-0.5) K/uL Baso # (Auto) 0.01 (0-0.2) K/uL Platelet Estimate Decreased L (Normal) Peripher Smr Path Cons PT (9.0-12.0) Seconds INR (0.9-1.1) APTT (21.0-31.0) Seconds PTT Ratio Sodium 135 L (136-145) mmol/L Potassium 3.7 (3.5-5.1) mmol/L Chloride 104 (98-107) mmol/L Carbon Dioxide 25 (21-32) mmol/L Anion Gap 6.0 (3-11) BUN 27 H (7-18) mg/dl Creatinine 1.37 (0.6-1.4) mg/dl Est Cr Clr Drug Dosing 69.3 ml/min Est GFR ( Amer) 61.4 Est GFR (Non-Af Amer) 53.0 BUN/Creatinine Ratio 19.9 (10-20) Glucose 149 H (70-99) mg/dl Lactate 1.8 (0.4-2.0) mmol/L Calcium 8.3 L (8.5-10.1) mg/dl Total Bilirubin 1.0 (0.2-1) mg/dl AST 90 H (15-37) U/L ALT 78 (12-78) U/L Alkaline Phosphatase 65 (45-117) U/L Total Creatine Kinase 377 H (39-308) U/L CK-MB (CK-2) 2.7 (0.5-3.6) ng/ml CK/CKMB % Calc 0.7 (0-3.0) Troponin I 0.028 (0-0.045) ng/ml Total Protein 7.2 (6.4-8.2) gm/dl Albumin 3.1 L (3.4-5.0) gm/dl Globulin 4.1 H (2.5-4.0) gm/dl Albumin/Globulin Ratio 0.8 L (0.9-2) Urine Color Urine Appearance (Clear) Urine pH (4.5-7.5) Ur Specific Issue (1.000-1.030) Urine Protein (Negative) Urine Glucose (UA) (Negative) Urine Ketones (Negative) Urine Blood (Negative) Urine Nitrite (Negative) Urine Bilirubin (Negative) Urine Urobilinogen (Negative) Ur Leukocyte Esterase (Negative) Urine WBC (Auto) (0-5) /hpf Urine RBC (Auto) (0-4) /hpf U Hyaline Cast (Auto) (0-5) /lpf U Epithel Cells (Auto) (0-5) /lpf Urine Bacteria (Auto) (Negative) Granular Casts (0) /lpf Urine Yeast Lyme Disease IgG Ab (Negative) Lyme Disease IgM Ab (Negative) 05/04/19 05/04/19 05/04/19 Range/Units 13:10 13:23 16:05 WBC (4.8-10.8) K/uL RBC (4.7-6.1) M/uL Hgb (14.0-18.0) g/dL Hct (42-52) % MCV (80-100) fL MCH (25-34) pg MCHC (32-36) g/dL RDW Std Deviation (36.4-46.3) fL RDW Coeff of Jorge L (11.5-14.5) % Plt Count (130-400) K/uL MPV (7.4-10.4) fL Immature Gran % (Auto) % Neut % (Auto) % Lymph % (Auto) % Wheeler % (Auto) % Eos % (Auto) % Baso % (Auto) % Immature Gran # (Auto) (0.00-0.02) K/uL Neut # (Auto) (1.4-6.5) K/uL Lymph # (Auto) (1.2-3.4) K/uL Wheeler # (Auto) (0.11-0.59) K/uL Eos # (Auto) (0-0.5) K/uL Baso # (Auto) (0-0.2) K/uL Platelet Estimate (Normal) Peripher Smr Path Cons PT 11.5 (9.0-12.0) Seconds INR 1.1 (0.9-1.1) APTT 29.9 (21.0-31.0) Seconds PTT Ratio 1.1 Sodium (136-145) mmol/L Potassium (3.5-5.1) mmol/L Chloride (98-107) mmol/L Carbon Dioxide (21-32) mmol/L Anion Gap (3-11) BUN (7-18) mg/dl Creatinine (0.6-1.4) mg/dl Est Cr Clr Drug Dosing ml/min Est GFR ( Amer) Est GFR (Non-Af Amer) BUN/Creatinine Ratio (10-20) Glucose (70-99) mg/dl Lactate (0.4-2.0) mmol/L Calcium (8.5-10.1) mg/dl Total Bilirubin (0.2-1) mg/dl AST (15-37) U/L ALT (12-78) U/L Alkaline Phosphatase (45-117) U/L Total Creatine Kinase (39-308) U/L CK-MB (CK-2) (0.5-3.6) ng/ml CK/CKMB % Calc (0-3.0) Troponin I (0-0.045) ng/ml Total Protein (6.4-8.2) gm/dl Albumin (3.4-5.0) gm/dl Globulin (2.5-4.0) gm/dl Albumin/Globulin Ratio (0.9-2) Urine Color Dark Yellow Urine Appearance Cloudy A (Clear) Urine pH 5.5 (4.5-7.5) Ur Specific Issue 1.027 (1.000-1.030) Urine Protein 2+ H (Negative) Urine Glucose (UA) Negative (Negative) Urine Ketones Negative (Negative) Urine Blood 1+ H (Negative) Urine Nitrite Negative (Negative) Urine Bilirubin Negative (Negative) Urine Urobilinogen Negative (Negative) Ur Leukocyte Esterase Negative (Negative) Urine WBC (Auto) 1-5 (0-5) /hpf Urine RBC (Auto) 0-4 (0-4) /hpf U Hyaline Cast (Auto) 10-30 H (0-5) /lpf U Epithel Cells (Auto) >30 H (0-5) /lpf Urine Bacteria (Auto) Negative (Negative) Granular Casts 5-10 H (0) /lpf Urine Yeast Not Reportable Lyme Disease IgG Ab Negative (Negative) Lyme Disease IgM Ab Negative (Negative) Imaging Data Radiologist's Impression: Radiology results as stated below per my review and the radiologist's interpretation: SINGLE VIEW CHEST CLINICAL HISTORY: Sepsis. FINDINGS: An AP, portable, upright chest radiograph is compared to study dated 07/13/2018. The examination is degraded by portable technique and patient rotation. The heart is enlarged and there is mild atherosclerotic calcification of the thoracic aorta. The pulmonary vasculature is noncongested. There is mild chronic elevation of the left hemidiaphragm with associated atelectasis. The lungs and pleural spaces are otherwise clear. No pneumothorax is seen. The bony thorax is grossly intact. Degenerative change is seen in the thoracic spine. IMPRESSION: Cardiac enlargement with no active disease in the chest. Electronically signed by: Bill Lisa M.D. 05/04/2019 1:03 PM ECG Data Attestation: I personally reviewed and interpreted this ECG as follows: Indication: syncope (near), vomiting and weakness Rate (beats per minute): 101 Rhythm: atrial fibrillation (with RVR) Findings: no ST depression and no ST elevation Comparison ECG Date: from (05/08/2015) Change: the following changes noted (atrial fibrillation has replaced sinus rhythm) Blood Pressure Blood Pressure Findings: Normal blood pressure Blood Pressure Disposition: did not require urgent referral MDM Narrative This is a 68-year-old male who presents emergency department after syncopal episode at his clinic. In addition the patient has new onset atrial fibrillation. I will note he has a decrease in his white blood cell count along with a slight increase in his liver enzymes as well as a decrease in his platelets. Based on this I suspect he may be suffering from anaplasmosis. Therefore Lyme Ehrlichia and anaplasmosis titers were drawn. A peripheral smear did not show any evidence of it. The patient was started on 2 g of Rocephin as well as doxycycline. He was given 3 L boluses of fluid. 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 Patient was in agreement with the treatment plan. Impression & Plan New onset a-fib, Leukopenia, Thrombocytopenia Discharge Plan Visit Data *Final* Discharge Date/Time: 05/04/19 17:13 Chief Complaint: Illness Stated Complaint: dizzy/vomit ED Provider: Mesfin Dupont Discharge Problem: New onset a-fib, Leukopenia, Thrombocytopenia Patient Disposition: Admitted As Inpatient Discharge Instructions Interventions: ED Discharge Assessment Last Done: 05/04/19 17:13 Discharge Problem: Leukopenia Qualifiers: Leukopenia type: unspecified Qualified Code(s): D72.819 - Decreased white blood cell count, unspecified The scribe's documentation has been prepared under my direction and personally reviewed by me in its entirety. I confirm that the note above accurately reflects all work, treatment, procedures, and medical decision making performed by me.
[2019-05-04] MEDS ORDERED: VANCOMYCIN CONSULT ACTIVE PRN (19:07)
[2019-05-04] MEDS ORDERED: VANCOMYCIN HCL 2,750 MG in SODIUM CHLORIDE 0.9% 500 ML IV ONE (19:30)
--- NOTE | 2019-05-04 19:53 | Pharmacy Report ---
Pharmacy Abx Initial Consult - Date of Service May 04, 2019 - Pharmacy Dosing Scope Date of Consult: 05/04/19 Consultation requested by: Dr. Alston Pharmacy is consulted to initiate Vancomycin IV dosing therapy, order appropriate labs and adjust drug dose/frequency. - Subjective The patient is a 68 year old M admitted on 05/04/19 16:29. - Objective Height: 6 ft 7 in Weight: 111 kg Vital Signs (Past 12hrs): Vital Signs Temp Pulse Pulse Resp BP BP Pulse Ox 05/04/19 19:23 36.7 C 94 H 19 111/78 94 05/04/19 17:39 36.8 C 91 H 18 102/64 99 05/04/19 17:01 90 20 122/66 100 05/04/19 17:00 100 H 26 H 94 05/04/19 16:50 92 H 9 L 100 05/04/19 16:40 92 H 20 97 05/04/19 16:30 36.9 C 90 21 97 05/04/19 16:20 80 23 97 05/04/19 16:10 86 16 94 05/04/19 16:01 94 H 9 L 84/63 L 100 05/04/19 16:00 99 H 15 99 05/04/19 15:50 116 H 16 98 05/04/19 15:40 92 H 18 100 05/04/19 15:30 88 11 L 119/69 100 05/04/19 15:20 94 H 19 99 05/04/19 15:10 88 33 H 100 05/04/19 15:00 97 H 29 H 125/77 100 05/04/19 14:50 93 H 28 H 100 05/04/19 14:40 94 H 27 H 100 05/04/19 14:30 92 H 20 118/86 100 05/04/19 14:20 97 H 26 H 100 05/04/19 14:10 99 H 24 100 05/04/19 14:00 95 H 22 134/90 100 05/04/19 13:40 99 H 21 137/73 100 05/04/19 13:36 97 H 20 100 05/04/19 13:30 103 H 19 119/80 100 05/04/19 13:10 98 H 15 104/74 100 05/04/19 13:01 110 H 20 96/71 L 100 05/04/19 13:00 106 H 18 100 06/13/19 12:50 100 H 4 L 93/71 L 100 05/04/19 12:40 107 H 17 107/67 100 05/04/19 12:31 106 H 29 H 98 05/04/19 12:30 103 H 19 106/69 100 05/04/19 12:20 98 H 19 100 05/04/19 12:16 87 13 97/70 L 100 05/04/19 12:10 100 H 24 89 L 05/04/19 12:04 37.0 C 93 H 20 100/71 96 05/04/19 12:02 111 H 18 87 L 05/04/19 12:00 90 24 97/68 L 86 L 05/04/19 11:57 103 H 26 H 110/79 92 Lab Results (24hrs): Laboratory Tests (24 Hours) 05/04/19 05/04/19 13:10 13:10 WBC 2.84 L Neut # (Auto) 2.33 Creatinine 1.37 Est Cr Clr Drug Dosing 69.3 Total Creatine Kinase 377 H Micro Results: 05/04/19 16:05 Urine Culture - Pending Urine,Clean Catch 05/04/19 13:23 Aerobic Blood Culture - Pending Blood Anaerobic Blood Culture - Pending 05/04/19 13:10 Aerobic Blood Culture - Pending Blood Anaerobic Blood Culture - Pending - Risk Factors for Resistance * Immunocompromised - currently leukopenic and thrombocytopenic * - Assessment & Plan Assessment 68 year old M presents to the ED for with history of fever, chills, generalized weakness, nausea, and vomiting x 4 days. During a visit to his PCP he became lightheaded and nearly lost consciousness. No recent travel. Lyme disease serology negative, serologies pending for Anaplasmosis and Ehrlichiosis Blood cultures x2 pending. Patient has been afebrile during admission. Transthoracic Echocardiogram done today showed an echodensity in the right atrium possibly adherent to interatrial septum. Given his general ill-appearance and other symptoms, Vancomycin added for staph coverage until vegetation can be confirmed or ruled out. Possible ARLEEN tomorrow. Plan Vancomycin for treatment of possible endocarditis/atrial vegetation Vancomycin IV * Estimated PK Parameters: Vd 0.7 L/kg, Ziggy 0.062 hr-1, t1/2 11 hr * Loading dose: 2750 mg (24.7 mg/kg) * Maintenance dose: 1750 mg IV (15.8 mg/kg) every 14 hours * Goal trough level : 15 to 20 mcg/mL * Trough/Random level ordered for 05/07/19 before 4th maintenance dose. Doxycycline (not a consult) * 100mg PO Q12 hours appropriate for indication. Ceftriaxone (not a consult) * 2 gm IV Q24 hours appropriate for patient weight and indication. Pharmacy will continue to follow and will adjust dose/frequency as necessary. Thank you.
[2019-05-04] MEDS: INSULIN ASPART 100 UNITS/ML 3 ML PEN SC SCH (20:37)
[2019-05-04] MEDS: DOXYCYCLINE HYCLATE 100 MG CAP PO SCH (20:42)
[2019-05-05] MEDS: NSS + 20MEQ KCL 20 MEQ/1,000 ML BAG IV SCH ×4 (00:18→19:41)
[2019-05-05] MEDS: ASPIRIN 81 MG ECTAB PO SCH (07:51)
[2019-05-05] MEDS: ALLOPURINOL 100 MG TAB PO SCH (07:52)
[2019-05-05] MEDS: cefTRIAXone SODIUM 2,000 MG in DEXTROSE 5% 50 ML IV SCH (07:52)
[2019-05-05] MEDS: DOXYCYCLINE HYCLATE 100 MG CAP PO SCH ×2 (07:52→21:05)
[2019-05-05] MEDS: INSULIN ASPART 100 UNITS/ML 3 ML PEN SC SCH ×4 (07:52→21:04)
[2019-05-05 08:25] LABS: Estimated Average Glucose 146 mg/dl; Hemoglobin A1C 6.7 % (4.5-5.6)
[2019-05-05 08:52] LABS: Albumin Level 2.6 gm/dl (3.4-5.0); BUN Creatinine Ratio 19.5 (10-20); Bilirubin Direct 0.2 mg/dl (0-0.2); Bilirubin,Total 0.6 mg/dl (0.2-1); Calcium 8.2 mg/dl (8.5-10.1); Creatinine Clr Calc Pharmacy 76.6 ml/min; Est GFR (African American) 69.3; Est GFR (Non-African American) 59.8; Magnesium 2.3 mg/dl (1.8-2.4); Potassium 3.9 mmol/L (3.5-5.1)
[2019-05-05 08:57] LABS: Total Protein 5.9 gm/dl (6.4-8.2)
[2019-05-05 09:05] LABS: Hematocrit (blood only) 40.3 % (42-52); Hemoglobin 13.5 g/dL (14.0-18.0); Mean Corpuscular Hgb Conc 33.5 g/dL (32-36); Mean Corpuscular Volume 92.6 fL (80-100); Mean Platelet Volume 12.5 fL (7.4-10.4); Platelet Count 37 K/uL (130-400); RDW Coefficient of Variation 13.9 % (11.5-14.5); RDW Standard Deviation 47.3 fL (36.4-46.3); Red Blood Count 4.35 M/uL (4.7-6.1); White Blood Count 2.85 K/uL (4.8-10.8)
[2019-05-05 09:06] LABS: Basophils # (auto) 0.06 K/uL (0-0.2); Basophils % (auto) 2.1 %; Giant Platelets 2+; Lymphocytes # (auto) 1.12 K/uL (1.2-3.4); Lymphocytes % (auto) 39.3 %; Monocytes # (auto) 0.43 K/uL (0.11-0.59); Monocytes % (auto) 15.1 %; Neutrophils # (auto) 1.24 K/uL (1.4-6.5); Neutrophils % (auto) 43.5 %; Platelet Estimate SIGNIFIC DECREASED (Normal)
[2019-05-05] MEDS: VANCOMYCIN HCL 1,750 MG in SODIUM CHLORIDE 0.9% 500 ML IV SCH ×2 (10:08→23:58)
--- NOTE | 2019-05-05 10:21 | Cardiology Progress Note ---
Date of Service May 05, 2019 Assessment & Plan (1) Cardiac mass: Patient with echodensity noted in the right frontal diagnosis includes anatomical variation (prominent Chiari network), thrombus, or atypical vegetation given the location. Recommend ongoing empiric antibiotics and transesophageal echocardiogram today for further characterization. Informed consent was obtained the patient is agreeable. (2) New onset a-fib: Patient was tachycardic on arrival, but his tachycardia has improved with receiving IV fluid resuscitation. Currently rate controlled atrial fibrillation 80 bpm range as noted on telemetry and EKG. No need for AV ravi blockers. Holding systemic anticoagulation due to thrombocytopenia (3) Sepsis: (4) Leukopenia: (5) Thrombocytopenia: Ongoing leukopenia with WBC count of 25, hemoglobin stable, platelet count 37,000. No recent heparin exposure. Lymphocytosis noted. Giant platelets noted. Anaplasmosis is on the differential, and serology studies are pending for this. Blood cultures pending. Continue doxycycline, IV Rocephin, IV vancomycin. Trend cultures. (6) Proteinuria: Proceed with urine protein to creatinine ratio. Subjective Chief complaint: Follow-up generalized illness Subjective: Patient feeling mildly improved today compared to when he presented to the emergency room. No high temperatures overnight, most recent temperature 36.4. He still has amount of erythema over his trunk and back. Review of Systems Review of Systems: All systems reviewed & are unremarkable except as noted in HPI & below Right second finger injury within the last week Physical Exam Physical Exam: General: no acute distress and stated age Eyes: conjunctiva are pink and non-injected, sclera clear Neck: normal jugular venous pulse, no hepatojugular reflux Chest: normal shape and normal respiratory effort Lungs: clear to auscultation and percussion Cardiac Exam: - regular heart sounds, no murmurs, rubs, or gallops, no jugular venous distention Abdomen: abdomen soft, non-tender, no abnormal masses and no hepatosplenomegaly Extremities: no edema and no cyanosis -Mild open wound right second finger. Neuro:awake, coversant, follows commands, no focal motor deficits Psych: appropriate affect and insight. Results & Data Vital Signs (Past 12 Hours) Vital Signs Temp Pulse Resp BP Pulse Ox 05/05/19 07:08 36.4 C L 80 19 109/72 98 05/05/19 03:45 36.4 C L 86 18 99/68 L 97 05/04/19 23:14 36.4 C L 86 19 126/89 94 Laboratory Results Cardiac Enzymes 05/04/19 05/05/19 Range/Units 13:10 07:50 AST 90 H 58 H (15-37) U/L CK-MB (CK-2) 2.7 (0.5-3.6) ng/ml Troponin I 0.028 (0-0.045) ng/ml Coagulation 05/04/19 Range/Units 13:23 PT 11.5 (9.0-12.0) Seconds APTT 29.9 (21.0-31.0) Seconds CBC 05/04/19 05/05/19 Range/Units 13:10 07:50 WBC 2.84 L 2.85 L (4.8-10.8) K/uL RBC 5.04 4.35 L (4.7-6.1) M/uL Hgb 16.1 13.5 L (14.0-18.0) g/dL Hct 45.2 40.3 L (42-52) % Plt Count 47 L 37 L (130-400) K/uL Neut # (Auto) 2.33 1.24 L (1.4-6.5) K/uL Lymph # (Auto) 0.34 L 1.12 L (1.2-3.4) K/uL [place] # (Auto) 0.16 0.43 (0.11-0.59) K/uL Eos # (Auto) 0.00 0.00 (0-0.5) K/uL Baso # (Auto) 0.01 0.06 (0-0.2) K/uL Comprehensive Metabolic Panel 05/04/19 05/05/19 Range/Units 13:10 07:50 Sodium 135 L 141 (136-145) mmol/L Potassium 3.7 3.9 (3.5-5.1) mmol/L Chloride 104 108 H (98-107) mmol/L Carbon Dioxide 25 27 (21-32) mmol/L BUN 27 H 24 H (7-18) mg/dl Creatinine 1.37 1.24 (0.6-1.4) mg/dl Glucose 149 H 91 (70-99) mg/dl Calcium 8.3 L 8.2 L (8.5-10.1) mg/dl Direct Bilirubin 0.2 (0-0.2) mg/dl AST 90 H 58 H (15-37) U/L ALT 78 60 (12-78) U/L Alkaline Phosphatase 65 52 (45-117) U/L Total Protein 7.2 5.9 L (6.4-8.2) gm/dl Albumin 3.1 L 2.6 L (3.4-5.0) gm/dl Intake and Output 05/04/19 05/05/19 05/05/19 22:59 06:59 14:59 Intake Total 3520 / 5775 2155 / 5775 70 / 70 Balance 3520 / 5775 2155 / 5775 70 / 70 Intake: IV 3070 / 5325 2155 / 5325 70 / 70 NORMAL SALINE w/20 MEQ KCL 20 1600 / 1600 meq In 1,000 ml @ 150 mls/hr IV .Q6H40M [facility] Rx#:[id number] Nss 1000ML 2,000 ml @ 999 mls/ 3000 / 3000 hr IV .Q2H1M [facility] Rx#:[id number] Vancomycin HCl 2,750 mg In Nss 555 / 555 500 ml @ 200 mls/hr IV NOW ONE Rx#:[id number] Rocephin 2,000 mg In D5w 50 ml 70 / 70 70 / 70 @ 100 mls/hr IV Q24H [facility] Rx#: [id number] Oral 450 / 450 Other: Weight 111 kg 108.3 kg Diagnostic Findings EKG this morning revealed atrial fibrillation at 79 bpm, no significant repolarization abnormalities Medications Administered Current Inpatient Medications Acetaminophen (Tylenol) 650 mg PO Q4H PRN PRN Reason: Pain or Fever Stop: 06/03/19 17:38 [facility] [place] Stop: 06/04/19 08:59 Last Admin: 05/05/19 07:52 Dose: 100 mg Documented by: Aspirin (Ecotrin Ectab) 81 mg PO QAM [facility] Stop: 06/04/19 08:59 Last Admin: 05/05/19 07:51 Dose: 81 mg Documented by: Dextrose (Dextrose 50%) 25 - 50 ml IV UD PRN; Protocol PRN Reason: Hypoglycemia Protocol Stop: 06/03/19 17:38 Doxycycline Hyclate (Vibramycin) 100 mg PO BID [facility] Stop: 05/18/19 20:59 Last Admin: 05/05/19 07:52 Dose: 100 mg Documented by: Glucagon (Glucagen) 1 mg SQ UD PRN; Protocol PRN Reason: Hypoglycemia Protocol Stop: 06/03/19 17:38 Glucose (Glucose 40%) 15 - 30 gm PO UD PRN; Protocol PRN Reason: Hypoglycemia Protocol Stop: 06/03/19 17:38 Glucose (Dex4 Glucose) 4 - 8 tabs PO UD PRN; Protocol PRN Reason: Hypoglycemia Protocol Stop: 06/03/19 17:38 Potassium Chloride/Sodium Chloride (Normal Saline W/20 Meq Kcl) 20 meq in 1,000 mls @ 150 mls/hr IV .Q6H40M [facility] Stop: 06/03/19 17:59 Last Admin: 05/05/19 04:18 Dose: 150 mls/hr Documented by: Ceftriaxone Sodium 2,000 mg/ (Dextrose) 70 mls @ 100 mls/hr IV Q24H [facility]; Protocol Stop: 05/19/19 08:59 Last Infusion: 05/05/19 08:36 Dose: Infused Documented by: Vancomycin HCl 1,750 mg/ (Sodium Chloride) 535 mls @ 200 mls/hr IV Q14H [facility] Stop: 06/16/19 09:59 Last Admin: 05/05/19 10:08 Dose: 200 mls/hr Documented by: Insulin Aspart (Novolog Flexpen) 0 units SC ACHS [facility] Stop: 06/03/19 20:59 Last Admin: 05/05/19 07:52 Dose: Not Given Documented by: Miscellaneous (Carbohydrates For Hypoglycemia) 15 - 30 gm PO UD PRN PRN Reason: Hypoglycemia Treatment Stop: 06/03/19 17:38 Miscellaneous Information (Consult) 1 ea N/A UD PRN PRN Reason: Consult Stop: 06/03/19 19:06 Ondansetron HCl (Zofran) 4 mg IV Q6H PRN PRN Reason: Nausea Stop: 06/03/19 17:38 Polyethylene Glycol (Miralax Powder Packet) 17 gm PO DAILY PRN PRN Reason: Constipation Stop: 06/03/19 17:38 (1) Leukopenia Leukopenia type: unspecified Qualified Code(s): D72.819 - Decreased white blood cell count, unspecified
[2019-05-05 12:59] LABS: Appearance Urine Clear (Clear); Bacteria Urine Automated Negative (Negative); Bilirubin Urine Negative (Negative); Blood Urine 1+ (Negative); Color Urine Yellow; Glucose Urine UA Negative (Negative); Ketones Urine Negative (Negative); Leukocyte Esterase Urine Negative (Negative); Nitrite Urine Negative (Negative); Protein Urine Negative (Negative); RBC Urine Automated 0-4 /hpf (0-4); Specific Gravity Urine 1.022 (1.000-1.030); Urobilinogen Urine Negative (Negative); pH Urine 5.5 (4.5-7.5)
[2019-05-05] MEDS ORDERED: PROPOFOL IV EMULSION 10 MG/ML 20 ML VIAL IV ONE (14:11)
[2019-05-05] MEDS ORDERED: BENZOCAIN/TETRACA/BUTAM SPRAY 200 APPLN/20 GM SPRY EXT ONE (14:11)
--- NOTE | 2019-05-05 14:48 | Anesthesiology Consultation ---
Date of Service May 05, 2019 Assessment & Plan (1) Encounter for pre-operative examination: Chart Review Chart Review: Acceptable Risk for Surgery and Patient NOT seen in Pre Admission Testing Consults Requested none ASA ASA4 History Surgery Operation Date: 05/05/19 14:30 Proposed Procedures p Transesophageal Echo w/Anesthesia - Kaden Wade DO Height/Weight Height: 6 ft 7 in Weight: 108.3 kg Allergies Allergy/AdvReac Type Severity Reaction Status Date / Time No Known Allergies Allergy Unverified 05/04/19 13:53 Medications Home Medications Medication Instructions Recorded Confirmed Last Taken acetaminophen 650 mg PO Q4H PRN 05/04/19 05/04/19 Unknown allopurinol 100 mg PO QAM 05/04/19 05/04/19 05/04/19 aspirin [Aspirin Childrens] 81 mg PO QAM 05/04/19 05/04/19 05/04/19 atorvastatin 20 mg PO DAILY 05/04/19 05/04/19 Unknown lisinopril 10 mg PO DAILY 05/04/19 05/04/19 05/04/19 metformin 500 mg PO BID 05/04/19 05/04/19 Unknown Active Medications Generic Name Dose Route Start Last Admin Trade Name Freq PRN Reason Stop Dose Admin Allopurinol 100 mg 05/05/19 09:00 05/05/19 07:52 Zyloprim PO 06/04/19 08:59 100 mg QAM RENA Administration Aspirin 81 mg 05/05/19 09:00 05/05/19 07:51 Ecotrin Ectab PO 06/04/19 08:59 81 mg QAM RENA Administration Doxycycline Hyclate 100 mg 05/04/19 21:00 05/05/19 07:52 Vibramycin PO 05/18/19 20:59 100 mg BID RENA Administration Potassium Chloride/Sodium Chloride 20 meq in 1,000 mls @ 150 mls/hr 05/04/19 18:00 05/05/19 12:32 Normal Saline W/20 Meq Kcl IV 06/03/19 17:59 150 mls/hr .Q6H40M RENA Administration Ceftriaxone Sodium 2,000 mg/ 70 mls @ 100 mls/hr 05/05/19 09:00 05/05/19 08:36 Dextrose IV 05/19/19 08:59 Infused Q24H RE[facility] Infusion Protocol Vancomycin HCl 1,750 mg/ 535 mls @ 200 mls/hr 05/05/19 10:00 05/05/19 13:22 Sodium Chloride IV 06/16/19 09:59 Infused Q14H RENA Infusion Insulin Aspart 0 units 05/04/19 21:00 05/05/19 12:32 Novolog Flexpen SC 06/03/19 20:59 Not Given ACHS RENA Past Medical History Medical History Lyme disease (Resolved) Hip pain (Resolved) Fever (Resolved) Confusion (Acute) Septic arthritis of IP joint of finger (Acute) Sepsis Abnormal chest x-ray (Acute) CKD (chronic kidney disease), stage III Diabetes Dyslipidemia Gout HTN (hypertension), benign Intention tremor Past Family History Family History Other Family history non-contributory Past Surgical History Surgical History No history of previous surgery Social History Smoking Status: Former smoker tobacco type: smokeless tobacco Do You Dip or Chew Tobacco: Yes (1 can a day) Hx Alcohol Use: Yes alcohol intake frequency: other Alcohol Intake Frequency Comment: rarely Hx Substance Use: No substance use type: does not use Physical Exam Vital Signs Last Vital Signs Temp 36.7 C 05/05/19 11:41 Pulse 79 05/05/19 11:41 Resp 19 05/05/19 11:41 BP 94/66 L 05/05/19 11:41 Pulse Ox 97 05/05/19 11:41
--- NOTE | 2019-05-05 15:12 | Anesthesiology Progress Note ---
Date of Service May 05, 2019 Anesthesia Post Procedure Vital Signs Vital Signs: Temp Pulse Pulse Pulse Resp BP BP 05/05/19 11:41 36.7 C 79 19 94/66 L 05/05/19 07:08 36.4 C L 80 19 109/72 05/05/19 03:45 36.4 C L 86 18 99/68 L 05/04/19 23:14 36.4 C L 86 19 126/89 05/04/19 19:23 36.7 C 94 H 19 111/78 05/04/19 17:39 36.8 C 91 H 18 102/64 05/04/19 17:01 90 20 122/66 05/04/19 17:00 100 H 26 H 05/04/19 16:50 92 H 9 L 05/04/19 16:40 92 H 20 05/04/19 16:30 36.9 C 90 21 05/04/19 16:20 80 23 05/04/19 16:10 86 16 05/04/19 16:01 94 H 9 L 84/63 L 05/04/19 16:00 99 H 15 05/04/19 15:50 116 H 16 05/04/19 15:40 92 H 18 05/04/19 15:30 88 11 L 119/69 05/04/19 15:20 94 H 19 Pulse Ox 05/05/19 11:41 97 05/05/19 07:08 98 05/05/19 03:45 97 05/04/19 23:14 94 05/04/19 19:23 94 05/04/19 17:39 99 05/04/19 17:01 100 05/04/19 17:00 94 05/04/19 16:50 100 05/04/19 16:40 97 05/04/19 16:30 97 05/04/19 16:20 97 05/04/19 16:10 94 05/04/19 16:01 100 05/04/19 16:00 99 05/04/19 15:50 98 05/04/19 15:40 100 05/04/19 15:30 100 05/04/19 15:20 99 Transfer of Care Handoff Completed per policy Notes Mental Status: alert / awake / arousable Patient Amnestic to Procedure: Yes Nausea / Vomiting: adequately controlled Pain: adequately controlled Airway Patency, RR, SpO2: stable & adequate BP & HR: stable & adequate Hydration State: stable & adequate Anesthetic Complications: no major complications apparent and Pt Satisfied with anesthetic care
--- NOTE | 2019-05-05 15:32 | Post Operative Brief Note ---
Cardiology Brief Post Op Date of Surgery May 05, 2019 Pre & Post Diagnosis Preprocedure diagnosis: Sepsis, right atrial cardiac mass Post procedure diagnosis: Prominent Chiari network, normal anatomical variant Operation Date: 05/05/19 14:30 Procedure After informed consent was obtained and a timeout was performed, the patient was sedated with the assistance of the anesthesia team receiving a total of 40 mg of IV lidocaine, and 250 mg of IV propofol in divided doses. Transesophageal echocardiogram was performed. Esophageal intubation took place easily. Images were obtained in the standard views. There is no evidence of valvular vegetation or significant valvular stenosis or regurgitation. A highly mobile echodensity was noted adherent to the start of the inferior vena cava consistent with a prominent Chiari network, which is an anatomical variant, remnant of embryology. Billet Worker DO Assistant Gage Rodriguez, [place] Estimated Blood Loss 0 Findings Consistent with Post-Op Diagnosis Anesthesia Type MAC Complications none The patient's vital signs remained stable throughout the procedure.
--- NOTE | 2019-05-06 00:21 | Hospitalist Progress Note ---
Date of Service May 05, 2019 Assessment & Plan (1) Febrile illness: Presented with fever, chills, malaise, thrombocytopenia. 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 Suspected tick-borne illness (possibly anaplasmosis)- studies pending. Receiving ceftriaxone, vancomycin, doxycycline. De-escalate antibiotics if cultures remain negative. (2) Atrial fibrillation: New onset AF, possibly secondary to infectious illness. [id number] score = 2. Rate controlled. No anticoagulants at this time due to thrombocytopenia. (3) Abnormal echocardiogram: Transthoracic echo 05/04 showed normal LV wall motion and function with LVEF 60- 65%, no pericardial effusion, linear mobile echodensity in midportion of right atrium that appeared to be adherent to interatrial septum. 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 (4) Proteinuria: Noted to have 2+ proteinuria. Diabetic- may have diabetic nephropathy. Proteinuria could be related to infectious process. Creatinine today = 1.24. Continue lisinopril. Follow. (5) Thrombocytopenia: Plt count 47,000 at time of admission. Thrombocytopenia probably secondary to infectious illness, possibly anaplasmosis. No active bleeding or severe bruising Plt count today = 37,000. Follow. (6) Leukopenia: WBC 2840 at time of admission. ANC 2330, lymphocytes 340. Leukopenia probably secondary to infectious illness, possibly anaplasmosis. WBC today = 2850 with ANC of 1240 and lymphocyte count of 1120. Follow. (7) DVT prophylaxis: No anticoagulants due to thrombocytopenia. SCD's. Ambulate. (8) Discharge planning issues: Anticipated discharge to home. Family Medicine follow-up with Dr. Matson. Cardiology follow-up with Dr. Wade. Subjective Recheck for febrile illness, AF, and other issues. Patient seen in their room around 19:50. Feels much better. Fever resolved. Underwent ALREEN earlier today without incident. No abnormal bleeding or bruising. Remains in AF with controlled rate. No chest pain or SOB. Ambulating in hallway. Review of Systems: Constitutional- no fever. Cardiac- as noted above. Pulmonary- no cough or SOB. GI- no nausea, vomiting, diarrhea, melena, hematochezia. - no urinary symptoms. Otherwise, as noted above. Physical Exam Constitutional: no acute distress Respiratory: no respiratory distress Auscultation: lungs clear to auscultation bilaterally Cardiovascular: Rate/Rhythm: + irregularly irregular Heart Sounds: no gal lop, no murmur and no cardiac rub Vessels: no JVD Extremities: no calf tenderness and no edema Gastrointestinal (Abdomen): normal bowel sounds, soft, nontender, no hepatosplenomegaly Skin: no rashes, warm and dry Psychiatric: Orientation: alert and oriented x 3 Results & Data Vital Signs (Past 12 Hours) Vital Signs Temp Pulse Resp BP Pulse Ox 05/05/19 23:23 36.4 C L 75 18 118/79 99 05/05/19 19:14 36.4 C L 90 20 124/93 97 05/05/19 16:26 83 124/81 05/05/19 15:56 84 111/76 05/05/19 15:26 84 110/82 98 Laboratory Results Laboratory Results - last 24 hr 05/05/19 05/05/19 05/05/19 07:23 07:50 07:50 WBC 2.85 L RBC 4.35 L Hgb 13.5 L Hct 40.3 L MCV 92.6 MCH 31.0 MCHC 33.5 RDW Std Deviation 47.3 H RDW Coeff of Jorge L 13.9 Plt Count 37 L MPV 12.5 H Immature Gran % (Auto) 0.0 Neut % (Auto) 43.5 Lymph % (Auto) 39.3 [place] % (Auto) 15.1 Eos % (Auto) 0.0 Baso % (Auto) 2.1 Immature Gran # (Auto) 0.00 Neut # (Auto) 1.24 L Lymph # (Auto) 1.12 L [place] # (Auto) 0.43 Eos # (Auto) 0.00 Baso # (Auto) 0.06 Platelet Estimate SIGNIFIC DECREASED Giant Platelets 2+ Sodium 141 Potassium 3.9 Chloride 108 H Carbon Dioxide 27 Anion Gap 6.0 BUN 24 H Creatinine 1.24 Est Cr Clr Drug Dosing 76.6 Est GFR ( Amer) 69.3 Est GFR (Non-Af Amer) 59.8 BUN/Creatinine Ratio 19.5 Glucose 91 POC Glucose 85 Estimat Average Glucose Hemoglobin A1c Calcium 8.2 L Magnesium 2.3 Total Bilirubin 0.6 Direct Bilirubin 0.2 AST 58 H ALT 60 Alkaline Phosphatase 52 Total Protein 5.9 L Albumin 2.6 L Urine Color Urine Appearance Urine pH Ur Specific [place] Urine Protein Urine Glucose (UA) Urine Ketones Urine Blood Urine Nitrite Urine Bilirubin Urine Urobilinogen Ur Leukocyte Esterase Urine WBC (Auto) Urine RBC (Auto) U Hyaline Cast (Auto) U Epithel Cells (Auto) Urine Bacteria (Auto) Ur Random Creatinine U Random Total Protein Protein/Creatinin Ratio 05/05/19 05/05/19 05/05/19 07:50 11:17 16:30 WBC RBC Hgb Hct MCV MCH MCHC RDW Std Deviation RDW Coeff of Jorge L Plt Count MPV Immature Gran % (Auto) Neut % (Auto) Lymph % (Auto) [place] % (Auto) Eos % (Auto) Baso % (Auto) Immature Gran # (Auto) Neut # (Auto) Lymph # (Auto) [place] # (Auto) Eos # (Auto) Baso # (Auto) Platelet Estimate Giant Platelets Sodium Potassium Chloride Carbon Dioxide Anion Gap BUN Creatinine Est Cr Clr Drug Dosing Est GFR ( Amer) Est GFR (Non-Af Amer) BUN/Creatinine Ratio Glucose POC Glucose 97 95 Estimat Average Glucose 146 Hemoglobin A1c 6.7 H Calcium Magnesium Total Bilirubin Direct Bilirubin AST ALT Alkaline Phosphatase Total Protein Albumin Urine Color Urine Appearance Urine pH Ur Specific [place] Urine Protein Urine Glucose (UA) Urine Ketones Urine Blood Urine Nitrite Urine Bilirubin Urine Urobilinogen Ur Leukocyte Esterase Urine WBC (Auto) Urine RBC (Auto) U Hyaline Cast (Auto) U Epithel Cells (Auto) Urine Bacteria (Auto) Ur Random Creatinine U Random Total Protein Protein/Creatinin Ratio 05/05/19 05/05/19 05/05/19 20:32 Unknown Unknown WBC RBC Hgb Hct MCV MCH MCHC RDW Std Deviation RDW Coeff of Jorge L Plt Count MPV Immature Gran % (Auto) Neut % (Auto) Lymph % (Auto) [place] % (Auto) Eos % (Auto) Baso % (Auto) Immature Gran # (Auto) Neut # (Auto) Lymph # (Auto) [place] # (Auto) Eos # (Auto) Baso # (Auto) Platelet Estimate Giant Platelets Sodium Potassium Chloride Carbon Dioxide Anion Gap BUN Creatinine Est Cr Clr Drug Dosing Est GFR ( Amer) Est GFR (Non-Af Amer) BUN/Creatinine Ratio Glucose POC Glucose 125 H Estimat Average Glucose Hemoglobin A1c Calcium Magnesium Total Bilirubin Direct Bilirubin AST ALT Alkaline Phosphatase Total Protein Albumin Urine Color Yellow Urine Appearance Clear Urine pH 5.5 Ur Specific [place] 1.022 Urine Protein Negative Urine Glucose (UA) Negative Urine Ketones Negative Urine Blood 1+ H Urine Nitrite Negative Urine Bilirubin Negative Urine Urobilinogen Negative Ur Leukocyte Esterase Negative Urine WBC (Auto) 1-5 Urine RBC (Auto) 0-4 U Hyaline Cast (Auto) 1-5 U Epithel Cells (Auto) 10-20 H Urine Bacteria (Auto) Negative Ur Random Creatinine 106.0 U Random Total Protein 36.0 H Protein/Creatinin Ratio 0.3 H (1) Leukopenia Leukopenia type: unspecified Qualified Code(s): D72.819 - Decreased white blood cell count, unspecified
[2019-05-06] MEDS: NSS + 20MEQ KCL 20 MEQ/1,000 ML BAG IV SCH ×2 (02:35→12:05)
[2019-05-06] MEDS: ASPIRIN 81 MG ECTAB PO SCH (07:41)
[2019-05-06] MEDS: DOXYCYCLINE HYCLATE 100 MG CAP PO SCH (07:41)
[2019-05-06] MEDS: INSULIN ASPART 100 UNITS/ML 3 ML PEN SC SCH ×2 (07:42→12:05)
[2019-05-06] MEDS: ALLOPURINOL 100 MG TAB PO SCH (07:42)
[2019-05-06] MEDS: cefTRIAXone SODIUM 2,000 MG in DEXTROSE 5% 50 ML IV SCH (07:46)
[2019-05-06 09:38] LABS: Creatinine Clr Calc Pharmacy 80.5 ml/min; Est GFR (African American) 73.6; Est GFR (Non-African American) 63.5
[2019-05-06] MEDS ORDERED: VANCOMYCIN HCL 1,750 MG in SODIUM CHLORIDE 0.9% 500 ML IV SCH (12:00)
--- NOTE | 2019-05-06 12:38 | Pharmacy Report ---
Pharmacy Abx Dose Short Note - Date of Service May 06, 2019 - Assessment & Plan Assessment 68 year old M receiving vancomycin for concern of endocarditis Day # 3 of antimicrobial therapy. Plan Vancomycin * Scr continues to improve further today to 1.18 mg/dL (CrCl~80 ml/min) * Current vancomycin regimen likely produces estimated level <15 mcg/ml, therefore will adjust to vancomycin 1750 mg iv q 12 hrs in order to target higher trough level * Estimated kinetics: t1/2~10 hrs, ke~0.07 hr-1, CrCl ~80 ml/min * Will plan to obtain a trough prior to the 1200 dose on 05/07 to ensure therapeutic if to be continued * Preliminary blood cultures are no growth and urine culture no growth - likely will deescalate abx soon, will continue to follow Pharmacy will continue to follow and will adjust dose/frequency as necessary. Thank you.
--- NOTE | 2019-05-06 13:51 | Cardiology Progress Note ---
Date of Service May 06, 2019 Assessment & Plan (1) New onset a-fib: Controlled ventricular response noted on telemetry. No indication for AV ravi blocking agents at this time. Cannot add systemic anticoagulation at this time due to thrombocytopenia. Recommend outpatient cardiology follow-up. (2) Cardiac mass: Prominent Chiari network per transesophageal echocardiogram. (3) Thrombocytopenia: Anaplasmosis is on the differential, and serology studies are pending for this. Blood cultures negative. Continue doxycycline. (4) Leukopenia: Subjective Patient seen and examined at the bedside. Denies chest pain or unusual shortness of breath. Feeling better today. No fevers overnight. Requesting discharge if possible. Telemetry demonstrates atrial fibrillation with controlled ventricular response. Transesophageal echocardiogram performed 05/05/2019 demonstrated prominent right atrial Chiari network. Review of Systems Review of Systems: All systems reviewed & are unremarkable except as noted in HPI & below Physical Exam Physical Exam: General: NAD, AAO x3, well nourished. HEENT: Normocephalic. Atraumatic. Conjunctiva pink, no scleral icterus. Neck: No carotid bruits, the carotid upstrokes are brisk. No JVD. No HJR Heart: Irregular rhythm, normal S1- S2. No murmur appreciated. No murmurs or rub appreciated. PMI is not displaced. No RV heave. Lungs: Clear bilateral without rales , rhonchi, or wheeze. Abdomen: Normal bowel sounds. Soft. Nontender. No masses or organomegaly. No abdominal bruits. Extremities: No clubbing, cyanosis, or edema. Pulses: radial=2/4, Dorsalis pedis =2/4, posterior tibial=2/4. Neuro: Cranial nerves grossly intact. No focal motor deficit. Results & Data Vital Signs (Past 12 Hours) Vital Signs Temp Pulse Resp BP Pulse Ox 05/06/19 10:38 36.4 C L 83 19 112/78 98 05/06/19 07:32 36.6 C 75 19 113/69 98 05/06/19 03:46 36.7 C 66 16 110/68 98 (1) Leukopenia Leukopenia type: unspecified Qualified Code(s): D72.819 - Decreased white blood cell count, unspecified
--- NOTE | 2019-05-06 15:34 | Hospitalist Progress Note ---
Date of Service May 06, 2019 Assessment & Plan (1) Febrile illness: Presented with fever, chills, malaise, thrombocytopenia. 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 Suspected tick-borne illness (possibly anaplasmosis)- studies pending. Received ceftriaxone, vancomycin, doxycycline. Blood cultures negative. Discontinue ceftriaxone and vancomycin. Discharge on doxycycline 100 mg p.o. twice daily to complete 10-day course of therapy. Review labs for anaplasmosis and ehrlichiosis once results available. (2) Atrial fibrillation: New onset AF, possibly secondary to infectious illness. [id number] score = 2. Rate controlled. No anticoagulants at this time due to thrombocytopenia. Further management per Cardiology. (3) Abnormal echocardiogram: Transthoracic echo 05/04 showed normal LV wall motion and function with LVEF 60- 65%, no pericardial effusion, linear mobile echodensity in midportion of right atrium that appeared to be adherent to interatrial septum. 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 (4) Proteinuria: Noted to have 2+ proteinuria. Diabetic- may have diabetic nephropathy. Proteinuria could be related to infectious process. Creatinine today = 1.18. Continue lisinopril. Recheck urine protein in clinic and review management with Nephrology if proteinuria persists. Follow. (5) Thrombocytopenia: Plt count 47,000 at time of admission. Thrombocytopenia probably secondary to infectious illness, possibly anaplasmosis. No active bleeding or severe bruising Plt count 05/05 was 37,000. Hold aspirin and diclofenac. Follow. (6) Leukopenia: WBC 2840 at time of admission. ANC 2330, lymphocytes 340. Leukopenia probably secondary to infectious illness, possibly anaplasmosis. WBC 05/05 was 2850 with ANC of 1240 and lymphocyte count of 1120. Follow. (7) DVT prophylaxis: No anticoagulants due to thrombocytopenia. SCD's. Ambulate. (8) Discharge planning issues: Discharge to home. Family Medicine follow-up with Dr. Matson. Cardiology follow-up with Dr. Wade. Subjective Recheck for febrile illness, AF, and other issues. Patient seen in their room around 13:00. Feels much better, but still tired. Fever, chills, sweats resolved. No abnormal bleeding or bruising. Remains in AF with controlled rate. No chest pain or SOB. Ambulating in hallway. Review of Systems: Constitutional- no fever. Cardiac- as noted above. Pulmonary- no cough or SOB. GI- no nausea, vomiting, diarrhea, melena, hematochezia. - no urinary symptoms. Otherwise, as noted above. Physical Exam Constitutional: no acute distress Respiratory: no respiratory distress Auscultation: lungs clear to auscultation bilaterally Cardiovascular: Rate/Rhythm: + irregularly irregular Heart Sounds: no gallop, no murmur and no cardiac rub Vessels: no JVD Extremities: no calf tenderness and no edema Gastrointestinal (Abdomen): normal bowel sounds, soft, nontender, no hepatosplenomegaly Skin: no rashes, warm and dry Psychiatric: Orientation: alert and oriented x 3 Results & Data Vital Signs (Past 12 Hours) Vital Signs Temp Pulse Resp BP Pulse Ox 05/06/19 15:18 36.5 C 70 18 118/74 100 05/06/19 10:38 36.4 C L 83 19 112/78 98 05/06/19 07:32 36.6 C 75 19 113/69 98 05/06/19 03:46 36.7 C 66 16 110/68 98 Laboratory Results Laboratory Results - last 24 hr 05/05/19 05/06/19 05/06/19 20:32 07:30 09:04 Creatinine 1.18 Est Cr Clr Drug Dosing 80.5 Est GFR ( Amer) 73.6 Est GFR (Non-Af Amer) 63.5 POC Glucose 125 H 84 05/06/19 11:17 Creatinine Est Cr Clr Drug Dosing Est GFR ( Amer) Est GFR (Non-Af Amer) POC Glucose 109 H (1) Leukopenia Leukopenia type: unspecified Qualified Code(s): D72.819 - Decreased white blood cell count, unspecified
--- NOTE | 2019-05-06 18:58 | Discharge Summary ---
Date of Service Date of Admission: 05/04/19 Date of Discharge: 05/06/19 Admission HPI Per Admitting Provider Patient is a 68-year-old male with history of diabetes, CKD III, gout, hypertension, dyslipidemia, smokeless tobacco use presents with history of fever, chills since 4 days duration. Patient reports having very poor appetite since Wednesday. He had 2 episodes of vomiting on Wednesday and Wednesday. He was evaluated at his PCPs office today and he complained of lightheadedness. He states having significant generalized weakness and has been lying in bed most of the day since Wednesday. Also reports dry cough since Wednesday. Patient was noted to be in A. fib RVR while in ED which improved with IV fluids. He was also noted to have low platelets, but denies any history of bleeding. He was also found to be hypotensive while in ED. Patient denies any recent travel, has not noticed any rash, tick bite history. States having history of Lyme's disease in the past 10 years ago. Denies any history of chest pain, SOB, palpitations, pedal edema, hemoptysis, fall, headache, abdominal pain, blood in stools, diarrhea, dysuria, hematuria. Admission Exam Per Admitting Provider Vitals signs as noted above General Appearance:Moderately built and nourished, no apparent distress Head: normocephalic, Atraumatic Eyes: normal inspection, EOMI Neck: supple, Trachea midline Respiratory/Chest: Decreased breath sounds, CTA Cardiovascular: Irregulary Irregular, No murmur Abdomen/GI:Soft, Non tender, Bowel sounds present Extremities/Musculoskelatal:normal inspection, no edema Neurologic/Psych:AAOX3, grossly no focal neurological deficits Skin: normal color, warm Principal Diagnosis febrile illness leukopenia thrombocytopenia atrial fibrillation, new onset Discharge Data Allergies Allergy/AdvReac Type Severity Reaction Status Date / Time No Known Allergies Allergy Unverified 05/04/19 13:53 Consultations 05/04/19 15:19 ED Decision to Admit Stat 05/04/19 17:39 Consult Cardiology Routine Consult Case Management - Discharge Planning Routine 05/05/19 10:08 Consult Anesthesiology Routine Procedures Performed Operation Date: 05/05/19 14:30 Actual Procedures p Transesophageal Echo - Kaden Wade DO Hospital Course (1) Febrile illness: Presented with fever, chills, malaise, thrombocytopenia. 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 Suspected tick-borne illness (possibly anaplasmosis)- studies pending. Received ceftriaxone, vancomycin, doxycycline. Blood cultures negative. Discontinue ceftriaxone and vancomycin. Discharge on doxycycline 100 mg p.o. twice daily to complete 10-day course of therapy. Review labs for anaplasmosis and ehrlichiosis once results available. (2) Atrial fibrillation: New onset AF, possibly secondary to infectious illness. [id number] score = 2. Rate controlled. No anticoagulants at this time due to thrombocytopenia. Further management per Cardiology. (3) Abnormal echocardiogram: Transthoracic echo 05/04 showed normal LV wall motion and function with LVEF 60- 65%, no pericardial effusion, linear mobile echodensity in midportion of right atrium that appeared to be adherent to interatrial septum. 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 (4) Proteinuria: Noted to have 2+ proteinuria. Diabetic- may have diabetic nephropathy. Proteinuria could be related to infectious process. Creatinine today = 1.18. Continue lisinopril. Recheck urine protein in clinic and review management with Nephrology if proteinuria persists. Follow. (5) Thrombocytopenia: Plt count 47,000 at time of admission. Thrombocytopenia probably secondary to infectious illness, possibly anaplasmosis. No active bleeding or severe bruising Plt count 05/05 was 37,000. Hold aspirin and diclofenac. Follow. (6) Leukopenia: WBC 2840 at time of admission. ANC 2330, lymphocytes 340. Leukopenia probably secondary to infectious illness, possibly anaplasmosis. WBC 05/05 was 2850 with ANC of 1240 and lymphocyte count of 1120. Follow. (7) Hypertension: Continue lisinopril. (8) Diabetes mellitus type 2, controlled: Hgb A1C 6.7. Metformin held during hospital stay. Fasting blood sugar day of discharge 84. Continue metformin as outpatient. Proteinuria as discussed above. (9) DVT prophylaxis: No anticoagulants due to thrombocytopenia. SCD's. Ambulate. (10) Discharge planning issues: Discharge to home. Family Medicine follow-up with Dr. Matson. Cardiology follow-up with Dr. Wade. Total Time Total Time Spent Total Time Spent (In Minutes): 40 Discharge Plan Discharge Items Patient Disposition: Home - Self-Care Reason For Visit: fever, atrial fibrillation Discharge Diagnosis: fever- possible anaplasmosis low platelet count- probably from infection atrial fibrillation- irregular heart rhythm Condition: Good Discharge Goals: Decrease discomfort and Improve disease control Activity: As commented below Activity Comment: gradually increase activity as tolerated Non-emergency contact: Primary Care Provider and Hospitalist Call non-emergency contact if: you have any medication questions, your symptoms worsen and you have a fever Follow-up/Referrals: Kaden Wade DO [[employer] [facility]] - (Office will contact you with appointment.) Manoj Matson MD [Primary Care Provider] - (05/09/2019 1:30 PM Avelina Pelaez PA-C(covering for Dr. Matson) [facility]) Diet: Carb Consistent or DM2 and Heart Healthy Addtl Provider Instructions: MEDICATION CHANGES: Stop taking aspirin and diclofenac (Voltaren) until platelet count is better. Take doxycycline 100 mg twice a day for infection (possible anaplasmosis). It can cause severe sunburn, so protect your skin from sun while taking it. Please have blood test (CBC) done in clinic next week to recheck your blood counts. SUMMARY OF TEST RESULTS AND PENDING TESTS: White blood count and platelet count were low, probably due to infection. Echocardiograms showed what appeared to be a structure left over from early development of your heart- nothing to worry about. Still waiting for test results for anaplasmosis. [facility] should be abl e to give you results next week. OTHER INSTRUCTIONS: Do everything that you can to avoid exposure to ticks. Seek medical attention if you have: * temperature above 101 * chest pain or trouble breathing * abdominal pain, nausea, vomiting * diarrhea, dark stools or bloody stools * abnormal bleeding or bruising * any unanswered questions or concerns Call 911 if symptoms are severe. Please take good care of yourself. Call if you have any questions or problems. My cell # is [phone]. You can also reach a [facility] hospitalist on duty at [facility] 24 hours a day by calling [phone]. Prescriptions: New doxycycline hyclate 100 mg tablet 100 mg PO BID 8 Days Qty: 16 RF: 0 Continued allopurinol 100 mg Tablet 100 mg PO QAM RF: 0 acetaminophen 650 mg Tablet Extended Release 650 mg PO Q4H PRN (Reason: Pain) RF: 0 lisinopril 10 mg Tablet 10 mg PO DAILY RF: 0 metformin 500 mg Tablet 500 mg PO BID RF: 0 atorvastatin 20 mg Tablet 20 mg PO DAILY RF: 0 Discontinued aspirin [Aspirin Childrens] 81 mg Tablet,Chewable 81 mg PO QAM RF: 0 diclofenac sodium 75 mg tablet,delayed release (DR/EC) 75 mg PO BID RF: 0 Stand-Alone Forms: [facility] Discharge Orders: Discharge Order (Routine); Ordered 05/06/19 Ordered By: Leo Turk Admission Data Admit Date/Time: 05/04/19 16:29 Attending Provider: Leo Turk Admit Provider: Peter Alston Primary Care Provider: Manoj Matson Other Providers: Peter Alston ; Kaden Wade ; Devon Gonzalez Service: Telemetry Other Interventions: Discharge Summary Assessment (RN) Last Done: 05/06/19 15:52 DC Date/Time DO NOT enter until pt leaves facility: 05/06/19 16:30
[2019-05-07] MEDS ORDERED: VANCOMYCIN TROUGH ONE ×2 (03:30→11:30)
[2019-05-09 20:18] LABS: Anaplasma phagocytophila IgM <1:20 (<1:20); Ehrlichia chaff IgG Ab <1:64 (<1:64); Ehrlichia chaff IgM Ab <1:20 (<1:20)
== END 2019-05-06 16:30 | disposition home or self-care (01) | DRG 871 ==
LOC: ED 11:39 → 2E 16:29
PROC: CLS.TEE (2019-05-05 14:30)
DX: D69.6 Thrombocytopenia, unspecified; A41.9 Sepsis, unspecified organism; I33.0 Acute and subacute infective endocarditis; I48.91 Unspecified atrial fibrillation; Z79.84 Long term (current) use of oral hypoglycemic drugs; M10.9 Gout, unspecified; A77.49 Other ehrlichiosis; Z79.82 Long term (current) use of aspirin; F17.220 Nicotine dependence, chewing tobacco, uncomplicated; D72.819 Decreased white blood cell count, unspecified; E78.5 Hyperlipidemia, unspecified; N18.3 Chronic kidney disease, stage 3 (moderate); Z87.891 Personal history of nicotine dependence; E11.9 Type 2 diabetes mellitus without complications; R80.9 Proteinuria, unspecified; I12.9 Hypertensive chronic kidney disease with stage 1 through stage 4 chronic kidney disease, or unspecified chronic kidney disease